=== PATIENT | male | born 1935 | race Caucasian/White ===

== ENCOUNTER 2017-05-22 16:46 | Inpatient (IN) | payer OTHER ==
--- NOTE | 2017-05-22 17:39 | PDOC ---
History of Present Illness <Adenike Arnett - Last Filed: 05/22/17 23:54> - History of Present Illness Initial Comments: 81 year old male with PMH of BPH, HTN, HLD, and Diabetes presenting with abdominal pain, nausea, and vomiting x1 since this AM. All started this AM as a right sided, mid abdominal, relapsing, remitting, 7/10, and non-radiating pain. gave him Mylanta without relief of symptoms. Inconsistent answers to health care providers regarding pain and concurrent symptoms. No objective fevers, but subjective chills and warmth. No cough, chest pain, palpitations, SOB, or other sick symptoms. Dr. Toney is her PCP. Had multiple prostate surgeries. 05/22/17 17:34 05/23/17 00:27 <Cherelle Sanders - Last Filed: 05/23/17 00:39> - General Stated Complaint: BACK PAIN Time Seen by Provider: 05/22/17 17:29 Past History <Adenike Arnett - Last Filed: 05/22/17 23:54> - Past Medical History Diabetes: Yes HTN: Yes Thyroid Disease: Yes - Suicide/Smoking/Psychosocial Hx Smoking Status: No Smoking History: Never smoked Have you smoked in the past 12 months: No Number of Cigarettes Smoked Daily: 0 Hx Alcohol Use: No Drug/Substance Use Hx: No Substance Use Type: None Hx Substance Use Treatment: No <Cherelle Sanders - Last Filed: 05/23/17 00:39> - Past Medical History Allergies/Adverse Reactions: Allergies Allergy/AdvReac Type Severity Reaction Status Date / Time No Known Allergies Allergy Verified 05/22/17 17:47 Home Medications: Ambulatory Orders Ciprofloxacin [Cipro -] 500 mg PO BID 01/27/13 Fesoterodine Fumarate [Toviaz] 8 mg PO DAILY 01/27/13 Insulin (Levemir) [Levemir Flexpen -] 26 units SQ HS 01/27/13 Metformin HCl [Glucophage -] 500 mg PO BID 01/27/13 Metoprolol Tartrate [Lopressor -] 100 mg PO DAILY 01/27/13 Silodosin [Rapaflo] 8 mg PO DAILY 01/27/13 Levothyroxine [Synthroid -] 75 mcg PO DAILY@0700 #0 tablet 02/04/13 Review of Systems - Review of Systems Constitutional: Yes: Diaphoresis. No: Chills, Fever HEENTM: No: Blurred Vision Respiratory: No: Cough, Shortness of Breath Cardiac (ROS): No: Chest Pain, Lightheadedness, Palpitations ABD/GI: Yes: Nausea, Vomiting. No: Constipated, Diarrhea : No: Burning, Dysuria, Discharge Musculoskeletal: No: Back Pain Integumentary: No: Bruising, Change in Color Neurological: No: Headache, Numbness <Cherelle Sanders - Last Filed: 05/23/17 00:39> *Physical Exam - Vital Signs Last Vital Signs Temp Pulse Resp BP Pulse Ox 101.3 F H 88 18 155/79 100 05/22/17 16:46 05/22/17 16:46 05/22/17 16:46 05/22/17 16:46 05/22/17 16:46 <Adenike Arnett - Last Filed: 05/22/17 23:54> - Physical Exam General Appearance: Yes: Nourished, Appropriately Dressed. No: Apparent Distress HEENT: positive: EOMI, DANNY, Normal ENT Inspection, Normal Voice Neck: positive: Trachea midline, Normal Thyroid, Supple. negative: Tender, Rigid Respiratory/Chest: positive: Lungs Clear, Normal Breath Sounds. negative: Chest Tender, Respiratory Distress, Accessory Muscle Use Cardiovascular: positive: Regular Rhythm, Regular Rate, S1, S2. negative: Edema , JVD, Murmur Gastrointestinal/Abdominal: positive: Tender (periumbilical tenderness), Flat, Soft, Increased Bowel Sounds. negative: Normal Bowel Sounds Musculoskeletal: positive: Normal Inspection Extremity: positive: Normal Capillary Refill, Normal Inspection, Normal Range of Motion Integumentary: positive: Normal Color, Dry, Warm Neurologic: positive: coat feller II-XII NML intact, Fully Oriented, Alert, Normal Mood/ Affect <Cherelle Sanders - Last Filed: 05/23/17 00:39> ED Treatment Course - LABORATORY CBC & Chemistry Diagram: 05/22/17 18:30 05/22/17 18:30 - ADDITIONAL ORDERS Additional order review: Laboratory Results 05/22/17 05/22/17 05/22/17 18:37 18:30 18:30 PT with INR INR Sodium 135 L Potassium 4.0 Chloride 100 Carbon Dioxide 28 Anion Gap 7 L BUN 16 Creatinine 0.7 Creat Clearance w eGFR > 60 Random Glucose 183 H D Lactic Acid 1.9 Calcium 9.4 Phosphorus 3.1 Magnesium 1.7 L Total Bilirubin 3.0 H D AST 235 H D ALT 252 H D Alkaline Phosphatase 440 H D Creatine Kinase 74 Troponin I < 0.02 Total Protein 7.5 Albumin 3.5 D Lipase 76 05/22/17 18:30 PT with INR 13.60 H INR 1.23 H Sodium Potassium Chloride Carbon Dioxide Anion Gap BUN Creatinine Creat Clearance w eGFR Random Glucose Lactic Acid Calcium Phosphorus Magnesium Total Bilirubin AST ALT Alkaline Phosphatase Creatine Kinase Troponin I Total Protein Albumin Lipase 05/22/17 18:30 RBC 4.59 MCV 85.1 MCHC 33.6 RDW 14.8 MPV 8.4 D Neutrophils % 89.3 H Lymphocytes % 4.6 L D Monocytes % 6.0 Eosinophils % 0.0 D Basophils % 0.1 D - Medications Given in the ED: ED Medications Discontinued Medications Generic Name Dose Route Start Last Admin Trade Name Freq PRN Reason Stop Dose Admin Sodium Chloride 500 ml 05/22/17 18:10 05/22/17 19:08 Normal Saline - IV 05/22/17 18:11 500 ml ONCE ONE Administration <Adenike Arnett - Last Filed: 05/22/17 23:54> - LABORATORY CBC & Chemistry Diagram: 05/22/17 18:30 05/22/17 18:30 <Cherelle Sanders - Last Filed: 05/23/17 00:39> Medical Decision Making - Medical Decision Making 81 year old male with fever, nausea, vomiting, diaphoresis, and alyce-umbilical tenderness worse with eating. This is most concerning for cholecystitis vs. appendicitis vs. gastroenteritis. Less likely mesenteric ischemia but on differential because of atherosclerotic risk factors. Will get CBC, CMP, lactate and CT abdomen/pelvis with PO contrast. 05/23/17 00:00 Labs exhibiting Transaminitis without specific predominance. No WBC but patient febrile. CT showing possible cholecystitis but no definitive stone., Will get US to elucidate further. 05/23/17 00:35 US positive for Cholecystitis and Dr. Davsi consulted. Will admit to hospitalists with Dr. Davis as consult. NPO at midnight. Patient got one dose of Zosyn. <Cherelle Sanders - Last Filed: 05/23/17 00:39> *DC/Admit/Observation/Transfer - Discharge Dispostion Admit: Yes <Adenike Arnett - Last Filed: 05/22/17 23:54> - Discharge Dispostion Admit: Yes <Cherelle Sanders - Last Filed: 05/23/17 00:39> Diagnosis at time of Disposition: Cholecystitis - Referrals Referrals: Hieu Quintana MD [Primary Care Provider] -
[2017-05-22] MEDS ORDERED: SODIUM CHLORIDE 0.9% 1000 ML INFUS.BAG IV ONE (18:10)
[2017-05-22 18:40] LABS: BASOPHIL 0.1 % (0-2.0); MCH 28.6 pg (25.7-33.7); MCHC 33.6 g/dl (32.0-35.9); MEAN CELL VOLUME 85.1 fl (80-96); MEAN PLT VOLUME 8.4 fl (7.5-11.1); NEUTROPHILS 89.3 % (42.8-82.8); PLATELET COUNT 235 K/MM3 (134-434); RDW 14.8 % (11.9-15.9)
[2017-05-22 18:55] LABS: INR 1.23 (0.82-1.09); PROTHROMBIN TIME (PATIENT) 13.6 SEC (9.98-11.88)
[2017-05-22 19:08] LABS: ALBUMIN 3.5 g/dl (3.4-5.0); ALK PHOS 440 U/L (45-117); ANION GAP 7 (8-16); CALCIUM 9.4 mg/dL (8.5-10.1); CO2 28 mmol/L (21-32); CREATININE 0.7 mg/dL (0.7-1.3); GLUCOSE,RANDOM 183 mg/dL (74-106); PHOSPHOROUS 3.1 mg/dL (2.5-4.9); SGPT/ALT 252 U/L (12-78); TOT PROT 7.5 g/dl (6.4-8.2)
[2017-05-22 19:46] LABS: MAGNESIUM 1.7 mg/dL (1.8-2.4); SGOT/AST 235 U/L (15-37)
[2017-05-22 20:12] LABS: CPK 74 IU/L (39-308); TROPONIN I < 0.02 ng/ml (0.00-0.05)
[2017-05-22] MEDS ORDERED: PIPERACILLIN/TAZOB 3.375 GM/50 ML PRE-DOCKED IV ONE (22:27)
[2017-05-22] MEDS ORDERED: PIPERACILLIN/TAZOB 3.375 GM 50 ML IVPB ONE (23:07)
--- NOTE | 2017-05-22 23:16 | PDOC ---
History of Present Illness - General Chief Complaint: Back Pain Stated Complaint: BACK PAIN Time Seen by Provider: 05/22/17 17:29 Past History - Past Medical History Allergies/Adverse Reactions: Allergies Allergy/AdvReac Type Severity Reaction Status Date / Time No Known Allergies Allergy Verified 05/22/17 17:47 Home Medications: Ambulatory Orders Ciprofloxacin [Cipro -] 500 mg PO BID 01/27/13 Fesoterodine Fumarate [Toviaz] 8 mg PO DAILY 01/27/13 Insulin (Levemir) [Levemir Flexpen -] 26 units SQ HS 01/27/13 Metformin HCl [Glucophage -] 500 mg PO BID 01/27/13 Metoprolol Tartrate [Lopressor -] 100 mg PO DAILY 01/27/13 Silodosin [Rapaflo] 8 mg PO DAILY 01/27/13 Levothyroxine [Synthroid -] 75 mcg PO DAILY@0700 #0 tablet 02/04/13 Diabetes: Yes HTN: Yes Thyroid Disease: Yes - Suicide/Smoking/Psychosocial Hx Smoking Status: No Smoking History: Never smoked Have you smoked in the past 12 months: No Number of Cigarettes Smoked Daily: 0 Information on smoking cessation initiated: No Hx Alcohol Use: No Drug/Substance Use Hx: No Substance Use Type: None Hx Substance Use Treatment: No *Physical Exam - Vital Signs Last Vital Signs Temp Pulse Resp BP Pulse Ox 101.3 F H 88 18 155/79 100 05/22/17 16:46 05/22/17 16:46 05/22/17 16:46 05/22/17 16:46 05/22/17 16:46 ED Treatment Course - LABORATORY CBC & Chemistry Diagram: 05/22/17 18:30 05/22/17 18:30 - ADDITIONAL ORDERS Additional order review: Laboratory Results 05/22/17 05/22/17 05/22/17 18:37 18:30 18:30 PT with INR INR Sodium 135 L Potassium 4.0 Chloride 100 Carbon Dioxide 28 Anion Gap 7 L BUN 16 Creatinine 0.7 Creat Clearance w eGFR > 60 Random Glucose 183 H D Lactic Acid 1.9 Calcium 9.4 Phosphorus 3.1 Magnesium 1.7 L Total Bilirubin 3.0 H D AST 235 H D ALT 252 H D Alkaline Phosphatase 440 H D Creatine Kinase 74 Troponin I < 0.02 Total Protein 7.5 Albumin 3.5 D Lipase 76 05/22/17 18:30 PT with INR 13.60 H INR 1.23 H Sodium Potassium Chloride Carbon Dioxide Anion Gap BUN Creatinine Creat Clearance w eGFR Random Glucose Lactic Acid Calcium Phosphorus Magnesium Total Bilirubin AST ALT Alkaline Phosphatase Creatine Kinase Troponin I Total Protein Albumin Lipase 05/22/17 18:30 RBC 4.59 MCV 85.1 MCHC 33.6 RDW 14.8 MPV 8.4 D Neutrophils % 89.3 H Lymphocytes % 4.6 L D Monocytes % 6.0 Eosinophils % 0.0 D Basophils % 0.1 D - Medications Given in the ED: ED Medications Discontinued Medications Generic Name Dose Route Start Last Admin Trade Name Freq PRN Reason Stop Dose Admin Sodium Chloride 500 ml 05/22/17 18:10 05/22/17 19:08 Normal Saline - IV 05/22/17 18:11 500 ml ONCE ONE Administration
--- NOTE | 2017-05-22 23:20 | PDOC ---
Attending Attestation - HPI HPI: 05/22/17 23:27 The patient is a 81 year old male, febrile and [place] citizen speaking, with a significant past medical history of hypertension, hyperlipidemia, diabetes, UTI , and hernias, who presents to the emergency department sent from urgent care for evaluation of increased right sided abdominal pain with associated nausea and vomiting this morning. The patient reports his pain as intermittent, localized just right to his umbilical region and states he can not describe his pain. He states his pain lasts a few minutes and resolves. He states he has had this pain for a few years. He also states he woke up nauseous this morning and reports one episode of nonbloody emesis today. 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 The patients reports giving her Mylanta with little to no alleviation of his pain. The patients states her was hunched over in pain this morning, however , reports he doesnt tell me anything. LBM: this morning, nonbloody, normal. He denies chest pain, shortness of breath, headache and dizziness. He denies chills, vomit, diarrhea and constipation. He denies dysuria, frequency, urgency and hematuria. Allergies: NKDA Past surgical history: none reported - Physicial Exam PE: 05/22/17 23:28 GENERAL: Well-appearing, well-nourished. No apparent distress. HEENT: Normocephalic, atraumatic. PERRL, EOM intact. CARDIOVASCULAR: Normal S1, S2. Regular rate and rhythm. PULMONARY: Clear to auscultation bilaterally. ABDOMEN: (+) reducible large ventral hernia. Soft, non-distended, non-tender. EXTREMITIES: Normal ROM in all four extremities. No gross deformities. SKIN: Warm, dry. No rash NEUROLOGICAL: No focal neurological deficits. - Medical Decision Making 05/22/17 23:28 Documentation prepared by Patricia Feng, acting as medical concierge for Adenike Arnett MD 05/22/17 23:32 Dr. Davis, general surgery, was paged at this time requesting a call back for doctor to doctor consult. 05/22/17 23:[address] Sanders, ED resident, discussed this patient's case at this time. 05/22/17 23:[address] Roblero, [facility] Hospitalist. The patient will be admitted to Dr. Suarez. <Patricia Feng - Last Filed: 05/22/17 23:56> - Resident Resident Name: Cherelle Sanders - ED Attending Attestation I have performed the following: I have examined & evaluated the patient, The case was reviewed & discussed with the resident, I agree w/resident's findings & plan, Exceptions are as noted - HPI HPI: 05/22/17 23:17 81 yo male BIBA from urgent care for nausea,vomiting x 1 and abdominal pain - Medical Decision Making 05/23/17 00:44 febrile 81 yo male with abd pain had US that showed thickened gallbladder wall, sludge and tbili=3.0 and elevated LFTs .Pt given abtibroeskrgery consult ADMITED to med.surg <Adenike Arnett - Last Filed: 05/23/17 00:46>
--- NOTE | 2017-05-23 | PN ---
Teaching Attending Note Name of Resident: Maxine Freire ATTENDING PHYSICIAN STATEMENT I saw and evaluated the patient. I reviewed the resident's note and discussed the case with the resident. I agree with the resident's findings and plan as documented. SUBJECTIVE: 81 yo M with hx of BPH, HTN, HLD, and DM who presents with abdominl pain. Also had associated nausea and vomiting since this morning. Pain is 7/10 and is located in his right upper quadrant. Pt. states he is no longer having any abdominal pain. Denies any chest pain or pressure. No n/v/d. OBJECTIVE: Physical: VS: Vital Signs Period Temp Pulse Resp BP Sys/Lopes Pulse Ox Last 24 Hr 101.3 F 88 18 155/79 100 GEN: NAD, Resting in bed, able to speak full sentences HEENT: NCAT, PERRL, throat without erythema or exudates CARD: RRR S1, S2 RESP: CTAB ABD: BSX4, NTD to palpation EXT: - C/C/E CBCD WBC 9.0 K/mm3 (4.0-10.0) D 05/22/17 18:30 RBC 4.59 M/mm3 (4.00-5.60) 05/22/17 18:30 Hgb 13.1 GM/dL (11.7-16.9) 05/22/17 18:30 Hct 39.1 % (35.4-49) 05/22/17 18:30 MCV 85.1 fl (80-96) 05/22/17 18:30 MCHC 33.6 g/dl (32.0-35.9) 05/22/17 18:30 RDW 14.8 % (11.9-15.9) 05/22/17 18:30 Plt Count 235 K/MM3 (134-434) D 05/22/17 18:30 MPV 8.4 fl (7.5-11.1) D 05/22/17 18:30 CMP Sodium 135 mmol/L (136-145) L 05/22/17 18:30 Potassium 4.0 mmol/L (3.5-5.1) 05/22/17 18:30 Chloride 100 mmol/L (98-107) 05/22/17 18:30 Carbon Dioxide 28 mmol/L (21-32) 05/22/17 18:30 Anion Gap 7 (8-16) L 05/22/17 18:30 BUN 16 mg/dL (7-18) 05/22/17 18:30 Creatinine 0.7 mg/dL (0.7-1.3) 05/22/17 18:30 Creat Clearance w eGFR > 60 (>60) 05/22/17 18:30 Random Glucose 183 mg/dL (74-106) H D 05/22/17 18:30 Calcium 9.4 mg/dL (8.5-10.1) 05/22/17 18:30 Total Bilirubin 3.0 mg/dL (0.2-1.0) H D 05/22/17 18:30 AST 235 U/L (15-37) H D 05/22/17 18:30 ALT 252 U/L (12-78) H D 05/22/17 18:30 Alkaline Phosphatase 440 U/L (45-117) H D 05/22/17 18:30 Total Protein 7.5 g/dl (6.4-8.2) 05/22/17 18:30 Albumin 3.5 g/dl (3.4-5.0) D 05/22/17 18:30 CARDIAC ENZYMES Creatine Kinase 74 IU/L (39-308) 05/22/17 18:37 Troponin I < 0.02 ng/ml (0.00-0.05) 05/22/17 18:37 EKG: PENDING CXR:No acute Process ABD/PELVIS CT: Mild Thickening if gallbladder wall and small amt of air in gallbladder fundus, mild haziness suspicous of acute choleycystitis. 1.9 cm Lesion in R. mid kidney. Abd US: Gallstone sludge with wall thickening. 2.5cm R. Hepatic lobe cyst. 1cm R , Renal simple cyst Home Medications Medication Instructions Recorded Ciprofloxacin [Cipro -] 500 mg PO BID 01/27/13 Fesoterodine Fumarate [Toviaz] 8 mg PO DAILY 01/27/13 Insulin (Levemir) [Levemir Flexpen 26 units SQ HS 01/27/13 -] Metformin HCl [Glucophage -] 500 mg PO BID 01/27/13 Metoprolol Tartrate [Lopressor -] 100 mg PO DAILY 01/27/13 Silodosin [Rapaflo] 8 mg PO DAILY 01/27/13 Levothyroxine [Synthroid -] 75 mcg PO DAILY@0700 #0 tablet 02/04/13 ASSESSMENT AND PLAN: 81 yo M with pmhx. of HTN, HLD, and DM who presents with abdominal pain, nausea and vomiting found to have acute choleycystitis 1.) Acute Choleycystitis - NPO - IVF - COAGS - Type and Screen - Zosyn - ID Consult - Sx. Consult 2.) Transaminitis- DDx: Choledocholithiasis - In light of INC. Lfts w. Inc Bili - MRCP - GI consult - Chk. D Adrian/Ggt 3.) DM - FS - RAISS - Hold Metformin - Hold Lantus- NO po intake today 4.) Hypothyriodism - C/W Levothyroxine 5.) BPH - C/W home meds 6.) Dvt Ppx - Low Risk - SCD Place in Med-Sx
--- NOTE | 2017-05-23 00:44 | HP ---
CHIEF COMPLAINT: abdominal pain PCP: Dr. Hieu Quintana HISTORY OF PRESENT ILLNESS: 71yo M with PMH of UTI, BPH, dm, htn, hld, presents c/o abdominal pain. Interpretation phones used, but pt declined to participate in interview. History obtained from medical chart and ER resident. Right sided abdominal pain began this morning. Pain is described as intermittent, non-radiating, rated 7/10. Pain is worse with eating. Pt took Mylanta which did not relieve the pain. Also, one episode of nbnb vomiting this morning. Last bowel movement was this morning, non-bloody/normal. ER course was notable for: (1) CT abdomen -> mild thickening of gallbladder wall and small amount of air in gallbladder fundus, mild haziness of surrounding fat suspicious for cholecystitis (2) US gallbladder -> gallstones with sludge and wall thickening, (-) sonographic oquendo's sign (3) Zosyn, NS 500ml bolus PAST MEDICAL HISTORY: uti bph dm htn hld thyroid PAST SURGICAL HISTORY: none Social History: Smoking: never Alcohol: none Drugs: none Allergies No Known Allergies Allergy (Verified 05/22/17 17:47) HOME MEDICATIONS: Home Medications Medication Instructions Recorded Ciprofloxacin [Cipro -] 500 mg PO BID 01/27/13 Fesoterodine Fumarate [Toviaz] 8 mg PO DAILY 01/27/13 Insulin (Levemir) [Levemir Flexpen 26 units SQ HS 01/27/13 -] Metformin HCl [Glucophage -] 500 mg PO BID 01/27/13 Metoprolol Tartrate [Lopressor -] 100 mg PO DAILY 01/27/13 Silodosin [Rapaflo] 8 mg PO DAILY 01/27/13 Levothyroxine [Synthroid -] 75 mcg PO DAILY@0700 #0 tablet 02/04/13 REVIEW OF SYSTEMS Unable to perform. Pt refused to participate. PHYSICAL EXAMINATION Last Vital Signs Temp Pulse Resp BP Pulse Ox 101.3 F H 88 18 155/79 100 05/22/17 16:46 05/22/17 16:46 05/22/17 16:46 05/22/17 16:46 05/22/17 16:46 GENERAL: Awake, alert, in no acute distress. HEAD: Normal with no signs of trauma. EYES: Extraocular movements intact, sclera anicteric, conjunctiva clear. No lid lag. EARS, NOSE, THROAT: Moist mucous membranes. NECK: Normal range of motion, supple without lymphadenopathy, JVD, or masses. LUNGS: Breath sounds equal, clear to auscultation bilaterally. No wheezes, and no crackles. No accessory muscle use. HEART: Regular rate and rhythm, normal S1 and S2. 3/6 holosystolic murmur appreciated, best heard at right upper sternal border. ABDOMEN: Soft, nontender, not distended, normoactive bowel sounds, no guarding, no rebound, no masses. (-) oquendo's sign. MUSCULOSKELETAL: Normal range of motion at all joints. LOWER EXTREMITIES: Warm, well-perfused. No peripheral edema. NEUROLOGICAL: Normal speech. Normal gait. PSYCHIATRIC: Good eye contact. SKIN: Warm, dry, normal turgor, no rashes or lesions noted. Laboratory Last Values WBC 9.0 K/mm3 (4.0-10.0) D 05/22/17 18:30 RBC 4.59 M/mm3 (4.00-5.60) 05/22/17 18:30 Hgb 13.1 GM/dL (11.7-16.9) 05/22/17 18:30 Hct 39.1 % (35.4-49) 05/22/17 18:30 MCV 85.1 fl (80-96) 05/22/17 18:30 MCH 28.6 pg (25.7-33.7) 05/22/17 18:30 MCHC 33.6 g/dl (32.0-35.9) 05/22/17 18:30 RDW 14.8 % (11.9-15.9) 05/22/17 18:30 Plt Count 235 K/MM3 (134-434) D 05/22/17 18:30 MPV 8.4 fl (7.5-11.1) D 05/22/17 18:30 Neutrophils % 89.3 % (42.8-82.8) H 05/22/17 18:30 Lymphocytes % 4.6 % (8-40) L D 05/22/17 18:30 Monocytes % 6.0 % (3.8-10.2) 05/22/17 18:30 Eosinophils % 0.0 % (0-4.5) D 05/22/17 18:30 Basophils % 0.1 % (0-2.0) D 05/22/17 18:30 PT with INR 13.60 SEC (9.98-11.88) H 05/22/17 18:30 INR 1.23 (0.82-1.09) H 05/22/17 18:30 Sodium 135 mmol/L (136-145) L 05/22/17 18:30 Potassium 4.0 mmol/L (3.5-5.1) 05/22/17 18:30 Chloride 100 mmol/L (98-107) 05/22/17 18:30 Carbon Dioxide 28 mmol/L (21-32) 05/22/17 18:30 Anion Gap 7 (8-16) L 05/22/17 18:30 BUN 16 mg/dL (7-18) 05/22/17 18:30 Creatinine 0.7 mg/dL (0.7-1.3) 05/22/17 18:30 Creat Clearance w eGFR > 60 (>60) 05/22/17 18:30 Random Glucose 183 mg/dL (74-106) H D 05/22/17 18:30 Lactic Acid 1.9 mmol/L (0.4-2.0) 05/22/17 18:30 Calcium 9.4 mg/dL (8.5-10.1) 05/22/17 18:30 Phosphorus 3.1 mg/dL (2.5-4.9) 05/22/17 18:30 Magnesium 1.7 mg/dL (1.8-2.4) L 05/22/17 18:30 Total Bilirubin 3.0 mg/dL (0.2-1.0) H D 05/22/17 18:30 AST 235 U/L (15-37) H D 05/22/17 18:30 ALT 252 U/L (12-78) H D 05/22/17 18:30 Alkaline Phosphatase 440 U/L (45-117) H D 05/22/17 18:30 Creatine Kinase 74 IU/L (39-308) 05/22/17 18:37 Troponin I < 0.02 ng/ml (0.00-0.05) 05/22/17 18:37 Total Protein 7.5 g/dl (6.4-8.2) 05/22/17 18:30 Albumin 3.5 g/dl (3.4-5.0) D 05/22/17 18:30 Lipase 76 U/L (73-393) 05/22/17 18:30 IMAGIN05/22/17 CXR -> no acute lung pathology 05/22/17 CT abdomen -> see above 05/22/17 US gallbladder -> see above ASSESSMENT/PLAN: 71yo M with PMH of UTI, BPH, dm, htn, hld, presents c/o Right-sided abdominal pain since this morning admit to Med-Surg inpatient for acute cholecystitis. 1) acute cholecystitis - npo - NS @ 83 ml/hr - type and screen ordered - Zosyn given - ID Consult - Surgery Consult 2) transaminitis - may be 2/2 choledocholithiasis - MRCP - GI Consult 3) febrile - neutrophilia noted - lactic acid wnl - UA, Urine culture - blood cultures pending 4) hypomagnesemia - replete 5) dm - blood glucose monitoring q6hr - sliding scale insulin - hold Metformin - hold long-acting insulin while pt is npo 6) hypothyroidism - continue home med of Synthroid 75mcg 7) htn - continue home med of Lopressor 100mg 8) bph - continue home med of Rapaflo 8mg 9) FEN - fluids: NS @ 83 ml/hr - electrolytes: slight hyponatremia noted, continue to monitor - nutrition: npo 10) DVT prophylaxis - toni SCDs - Heparin 5000U q8hr Visit type - Emergency Visit Emergency Visit: Yes ED Registration Date: 05/22/17 Care time: The patient presented to the Emergency Department on the above date and was hospitalized for further evaluation of their emergent condition. - New Patient This patient is new to me today: Yes Date on this admission: 05/23/17 - Critical Care Critical Care patient: No
[2017-05-23] MEDS: SODIUM CHLORIDE 1,000 ML IV SCH (01:19)
[2017-05-23] MEDS: INSULIN SLIDING SCALE (NOVOLOG) 1 VIAL SQ SCH ×4 (01:19→17:13)
[2017-05-23] MEDS ORDERED: MAGNESIUM SULF 50% (8.12 MEQ/2 ML-1 GM VIAL) IVPB ONE (01:52)
--- NOTE | 2017-05-23 02:02 | HP ---
Admitting History and Physical - Admission History of Present Illness: 71yo M with PMH of UTI, BPH, dm, htn, hld, presents c/o abdominal pain. Right sided abdominal pain started this AM currently Pain free. CTAP and RUQ US suggestive of acute cholecystitis vs choledocholithiasis and elevated LFTs with fever. History Source: Patient, Medical Record Limitations to Obtaining History: Language Barrier - Smoking History Smoking history: Never smoked Have you smoked in the past 12 months: No Aproximately how many cigarettes per day: 0 - Alcohol/Substance Use Hx Alcohol Use: No Home Medications - Allergies Allergies/Adverse Reactions: Allergies Allergy/AdvReac Type Severity Reaction Status Date / Time No Known Allergies Allergy Verified 05/22/17 17:47 - Home Medications Home Medications: Ambulatory Orders Ciprofloxacin [Cipro -] 500 mg PO BID 01/27/13 Fesoterodine Fumarate [Toviaz] 8 mg PO DAILY 01/27/13 Insulin (Levemir) [Levemir Flexpen -] 26 units SQ HS 01/27/13 Metformin HCl [Glucophage -] 500 mg PO BID 01/27/13 Metoprolol Tartrate [Lopressor -] 100 mg PO DAILY 01/27/13 Silodosin [Rapaflo] 8 mg PO DAILY 01/27/13 Levothyroxine [Synthroid -] 75 mcg PO DAILY@0700 #0 tablet 02/04/13 Physical Examination Vital Signs: Vital Signs Temperature 101.3 F H 05/22/17 16:46 Pulse Rate 88 05/22/17 16:46 Respiratory Rate 18 05/22/17 16:46 Blood Pressure 155/79 05/22/17 16:46 O2 Sat by Pulse Oximetry (%) 100 05/22/17 16:46 Constitutional: Yes: No Distress, Calm Eyes: Yes: Conjunctiva Clear HENT: Yes: Atraumatic Neck: Yes: Supple, Trachea Midline Cardiovascular: Yes: Regular Rate and Rhythm, Murmur (3/6 systolic Best heard at RUSB) Respiratory: Yes: CTA Bilaterally Gastrointestinal: Yes: Soft. No: Tenderness Edema: No Imaging - Results Chest X-ray: Report Reviewed, Image Reviewed Cat Scan: Report Reviewed, Image Reviewed Ultrasound: Report Reviewed Assessment/Plan 81M with multiple medical problems presents to the ED with 1 day history of abdominal pain. Problem list: acute cholecystitis vs possible choledocholithiasis transamintitis HTN HLD BPH/overactive bladder DM hypothyroidism Plan: Admit to inpatient surgery consult GI consult MRCP ID consult ABx NPO IVF DVT PPx BGM ISS Hold long acting insulin restart synthroid restart antihypertensives Case discussed with admitting resident and Attending Full H&P to follow Visit type - Emergency Visit Emergency Visit: Yes ED Registration Date: 05/23/17 Care time: The patient presented to the Emergency Department on the above date and was hospitalized for further evaluation of their emergent condition. - New Patient This patient is new to me today: Yes Date on this admission: 05/23/17 - Critical Care Critical Care patient: No
[2017-05-23 05:38] VITALS: BMI 28.4
[2017-05-23] MEDS: HEPARIN NA (PORCINE) 5,000 UNITS/ML 1ML VIAL SQ SCH ×3 (06:12→22:42)
[2017-05-23] MEDS: LEVOTHYROXINE NA 75 MCG TABLET (FP) PO SCH (07:10)
[2017-05-23 07:27] LABS: BASOPHIL 0.3 % (0-2.0); EOSINOPHIL 0.4 % (0-4.5); MCH 28.4 pg (25.7-33.7); MCHC 33.3 g/dl (32.0-35.9); MEAN CELL VOLUME 85.1 fl (80-96); MEAN PLT VOLUME 8.4 fl (7.5-11.1); NEUTROPHILS 76.9 % (42.8-82.8); PLATELET COUNT 224 K/MM3 (134-434); RDW 14.9 % (11.9-15.9); WHITE BLOOD COUNT 5.9 K/mm3 (4.0-10.0)
[2017-05-23] MEDS ORDERED: METRONIDAZOLE 500 MG PREMIXED 100 ML IVPB SCH (07:30)
[2017-05-23] MEDS ORDERED: DEXTROSE 5%-WATER - 50 ML IVPB ONE (07:41)
[2017-05-23] MEDS ORDERED: cefTRIAXone SODIUM 1 GM VIAL ONE (07:41)
[2017-05-23] MEDS: TAMSULOSIN HCL 0.4 MG CAP.ER.24H (FP) PO SCH (07:54)
--- NOTE | 2017-05-23 08:50 | CONSULT ---
<Larry Beltrán P - Last Filed: 05/23/17 09:14> - Consultation REQUESTING PROVIDER: Raji Davis - General Surgery CONSULT REQUEST: We have been asked to surgically evaluate this patient for RUQ abd pain. PCP: Abhi Soto HPI: Called to eval 81 yo male with PMHx noted below. C/o RUQ abd pain...worse after eating food. Admits he's experienced this in the pasy but never sought medical attention. Brought to [facility] for further eval. Had associated n/v. Had temp of 101.4F in ED. Initially, pain was 7/10 on admission and located in RUQ without radiation. Currently resting comfortably as pain has resolved. Given dose of Zosyn in ED. While in ED he had the following studies performed: CT abd -> mild thickening of GB wall & small amount of air in gb fundus, mild haziness of surrounding fat suspicious for cholecystitis U/S -> gallstones with sludge and wall thickening Denies n/v/f/c, diaphoresis, generalized weakness. Denies CP, SOB or ZAVALA. Denies abd pain, distension, melena, hematochezia. Denies dysuria, frequency, urgency, hesitancy, hematuria, flank pain. Denies rash or itching. Denies a EtOH history PMHx: UTI, BPH, DM, HTN, HLD, Hypothyroid PSHx: Denies Home Meds Ciprofloxacin [Cipro -] 500 mg PO BID Fesoterodine Fumarate [Toviaz] 8 mg PO DAILY Insulin (Levemir) [Levemir Flexpen -] 26 units SQ HS Metformin HCl [Glucophage -] 500 mg PO BID Metoprolol Tartrate [Lopressor -] 100 mg PO DAILY Silodosin [Rapaflo] 8 mg PO DAILY Levothyroxine [Synthroid -] 75 mcg PO DAILY@0700 #0 tablet Allergies: NKDA ROS: CONSTITUTIONAL: Absent: SEE HPI. malaise, loss of appetite, weight change CARDIOVASCULAR: Absent: SEE HPI. syncope, palpitations, irregular heart rate, lightheadedness RESPIRATORY: Absent: SEE HPI. cough, wheezing, stridor, hemoptysis GASTROINTESTINAL:Absent: SEE HPI GENITOURINARY: Absent: SEE HPI. genital pain MUSCULOSKELETAL: Absent: myalgia, arthralgia, joint swelling, back pain, neck pain SKIN: Absent: SEE HPI. rash, pallor HEMATOLOGIC/IMMUNOLOGIC: Absent: easy bleeding, easy bruising, lymphadenopathy NEUROLOGIC: Absent: headache, focal weakness, paresthesias, dizziness, unsteady gait, seizure, mental status changes PSYCHIATRIC: Absent: anxiety, depression, suicidal or homicidal ideation, hallucinations. PE: GENERAL: Awake, alert, and fully oriented, in no acute distress. HEAD: NC. AT. EYES: PERRL, sclera icteric ABD: Soft, NT. ND. Neg Cruz's MUSCULOSKELETAL: No CVAT Last Vital Signs Temp Pulse Resp BP Pulse Ox 99.1 F 72 20 124/59 97 05/23/17 07:42 05/23/17 07:42 05/23/17 07:42 05/23/17 07:42 05/23/17 05:08 CBC, BMP 05/23/17 06:00 Hepatic Panel Total Bilirubin 3.0 mg/dL (0.2-1.0) H D 05/22/17 18:30 AST 235 U/L (15-37) H D 05/22/17 18:30 ALT 252 U/L (12-78) H D 05/22/17 18:30 Alkaline Phosphatase 440 U/L (45-117) H D 05/22/17 18:30 Albumin 3.5 g/dl (3.4-5.0) D 05/22/17 18:30 INR, PTT INR 1.23 (0.82-1.09) H 05/22/17 18:30 Troponin 05/22/17 18:37 Troponin I < 0.02 Problem List - Problems (1) Cholecystitis Assessment/Plan: Pain management PRN Monitor LFTs Serial abd exams f/u MRCP GI Consult for elevated LFTs and possible ERCP pending results of MRCP f/u ECHO secondary to cardiac murmur Cardio Consult Medical optimization / clearance for impending lap karina IV ABX GI / DVT PPX Tylenol 650mg for fever > 100.3F Above plan discussed with Dr. Davis and agrees Code(s): K81.9 - CHOLECYSTITIS, UNSPECIFIED Visit type - Case Type Case Type: ED Admission - Emergency Emergency Visit: Yes ED Registration Date: 05/22/17 Care time: The patient presented to the Emergency Department on the above date and was hospitalized for further evaluation of their emergent condition. - New patient This patient is new to me today: Yes Date on this admission: 05/23/17 <Raji Davis N - Last Filed: 05/23/17 09:39> - Consultation REQUESTING PROVIDER: CONSULT REQUEST: We have been asked to surgically evaluate this patient for ( specify). PCP:Abhi Soto HISTORY OF PRESENT ILLNESS: PMHx: PSHx: Home Medications Medication Instructions Recorded Ciprofloxacin [Cipro -] 500 mg PO BID 01/27/13 Fesoterodine Fumarate [Toviaz] 8 mg PO DAILY 01/27/13 Insulin (Levemir) [Levemir Flexpen 26 units SQ HS 01/27/13 -] Metformin HCl [Glucophage -] 500 mg PO BID 01/27/13 Metoprolol Tartrate [Lopressor -] 100 mg PO DAILY 01/27/13 Silodosin [Rapaflo] 8 mg PO DAILY 01/27/13 Levothyroxine [Synthroid -] 75 mcg PO DAILY@0700 #0 tablet 02/04/13 Allergies Allergy/AdvReac Type Severity Reaction Status Date / Time No Known Allergies Allergy Verified 05/22/17 17:47 REVIEW OF SYSTEMS: CONSTITUTIONAL: Absent: fever, chills, diaphoresis, generalized weakness, malaise, loss of appetite, weight change CARDIOVASCULAR: Absent: chest pain, syncope, palpitations, irregular heart rate, lightheadedness , peripheral edema RESPIRATORY: Absent: cough, shortness of breath, dyspnea with exertion, wheezing, stridor, hemoptysis GASTROINTESTINAL: Absent: abdominal pain, abdominal distension, nausea, vomiting, diarrhea, constipation, melena, hematochezia GENITOURINARY: Absent: dysuria, frequency, urgency, hesitancy, hematuria, flank pain, genital pain MUSCULOSKELETAL: Absent: myalgia, arthralgia, joint swelling, back pain, neck pain SKIN: Absent: rash, itching, pallor HEMATOLOGIC/IMMUNOLOGIC: Absent: easy bleeding, easy bruising, lymphadenopathy NEUROLOGIC: Absent: headache, focal weakness, paresthesias, dizziness, unsteady gait, seizure, mental status changes, bladder or bowel incontinence PSYCHIATRIC: Absent: anxiety, depression, suicidal or homicidal ideation, hallucinations. PHYSICAL EXAM: GENERAL: Awake, alert, and fully oriented, in no acute distress. HEAD: Normal with no signs of trauma. EYES: PERRL, sclera anicteric, conjunctiva clear. NECK: Normal ROM, supple without lymphadenopathy, JVD, or masses. LUNGS: Clear to auscultation bilat anteriorly. No wheezes, and no crackles. No accessory muscle use. HEART: Regular rate and rhythm. No murmurs ABDOMEN: Soft, nontender, not distended, normoactive bowel sounds, no guarding, no rebound, no masses. No organomegaly. MUSCULOSKELETAL: Normal ROM at all joints. No bony deformities or tenderness. No CVA tenderness. UPPER EXTREMITIES: 2+ pulses, warm, well-perfused. No cyanosis. Cap refill <2 seconds. No peripheral edema. LOWER EXTREMITIES: 2+ pulses, warm, well-perfused. No calf tenderness. No peripheral edema. NEUROLOGICAL: Normal speech, gait not observed. PSYCH: Cooperative. Good eye contact. Appropriate mood and affect. SKIN: Warm, dry, normal turgor, no rashes or lesions noted. Vital Signs Temperature 99.1 F 05/23/17 07:42 Pulse Rate 72 05/23/17 07:42 Respiratory Rate 20 05/23/17 07:42 Blood Pressure 124/59 05/23/17 07:42 O2 Sat by Pulse Oximetry (%) 97 05/23/17 05:08 Lab Results WBC 5.9 K/mm3 (4.0-10.0) D 05/23/17 06:00 RBC 4.30 M/mm3 (4.00-5.60) 05/23/17 06:00 Hgb 12.2 GM/dL (11.7-16.9) 05/23/17 06:00 Hct 36.6 % (35.4-49) 05/23/17 06:00 MCV 85.1 fl (80-96) 05/23/17 06:00 MCHC 33.3 g/dl (32.0-35.9) 05/23/17 06:00 RDW 14.9 % (11.9-15.9) 05/23/17 06:00 Plt Count 224 K/MM3 (134-434) 05/23/17 06:00 Sodium 138 mmol/L (136-145) 05/23/17 06:00 Potassium 3.6 mmol/L (3.5-5.1) 05/23/17 06:00 Chloride 100 mmol/L (98-107) 05/23/17 06:00 Carbon Dioxide 30 mmol/L (21-32) 05/23/17 06:00 Anion Gap 8 (8-16) 05/23/17 06:00 BUN 14 mg/dL (7-18) 05/23/17 06:00 Creatinine 0.6 mg/dL (0.7-1.3) L 05/23/17 06:00 Random Glucose 139 mg/dL (74-106) H D 05/23/17 06:00 Calcium 8.2 mg/dL (8.5-10.1) L 05/23/17 06:00 INR 1.23 (0.82-1.09) H 05/22/17 18:30 Attending Surgeon Patient seen and evaluated; concur w/ a/p as outlined by APRIL Beltrán; case d/w Dr. Soto as well. Raji Davis MD FACS
[2017-05-23 09:03] LABS: ANION GAP 8 (8-16); CALCIUM 8.2 mg/dL (8.5-10.1); CO2 30 mmol/L (21-32); GLUCOSE,RANDOM 139 mg/dL (74-106); MAGNESIUM 2.4 mg/dL (1.8-2.4)
[2017-05-23 09:06] LABS: ALK PHOS 372 U/L (45-117); BILIRUBIN,TOTAL 2.7 mg/dL (0.2-1.0); CREATININE 0.6 mg/dL (0.7-1.3); PHOSPHOROUS 2.6 mg/dL (2.5-4.9); SGOT/AST 162 U/L (15-37); SGPT/ALT 203 U/L (12-78); TOT PROT 6.4 g/dl (6.4-8.2)
[2017-05-23] MEDS: CEFTRIAXONE 1 GM in DEXTROSE 5%-WATER - 50 ML IVPB SCH (09:20)
[2017-05-23] MEDS: METOPROLOL TARTRATE 50 MG TABLET (FP) PO SCH (09:26)
[2017-05-23] MEDS: METRONIDAZOLE 500 MG PREMIXED 100 ML IVPB SCH ×2 (09:28→17:09)
[2017-05-23 09:29] LABS: URINE APPEARANCE CLEAR; URINE BILIRUBIN NEGATIVE (NEGATIVE); URINE BLOOD NEGATIVE (NEGATIVE); URINE COLOR AMBER; URINE GLUCOSE (UA) NEGATIVE (NEGATIVE); URINE KETONE NEGATIVE (NEGATIVE); URINE LEUK ESTERASE NEGATIVE (NEGATIVE); URINE NITRITE NEGATIVE (NEGATIVE); URINE UROBILINOGEN 4.0 E.U/dl mg/dL (0.2-1.0)
--- NOTE | 2017-05-23 09:29 | PN ---
Teaching Attending Note Name of Resident: Sandrine Castillo ATTENDING PHYSICIAN STATEMENT I saw and evaluated the patient. I reviewed the resident's note and discussed the case with the resident. I agree with the resident's findings and plan as documented. 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 no abd pain at this time, he denies N/V/fever or chills. He reports intermittent abd pain at home , but not related to food. On monday constant pain started , but it remained constant till this am. He does not have GI doctor OBJECTIVE: NAD , Awake and alert , cooperative ecteric sclera, MMM. no JVD , no LAP in neck . EOMI CV: RRR, 3/6 SM at RUSB with radiation to carotids, 3/6 SM at apex with radiation to axilla. systolic mummers also heard at LUSB and LLSB Abd: soft, NT, ND , NL BS , Neg Cruz's sign Ext: no edema or erythema, no tremor or asterexis ASSESSMENT AND PLAN: 81 y/o man with h/o HTN, DM , HLP, and other medical problems who presented with RUQ pain and was found to have LFTS abnormalities, and gall stones 1- RUQ pain: although there are gall stones and gall blader wall thickening, the patient has no RUQ tenderness and Neg Cruz's sign. His sx also resolved. I wonder if he has passed a stone. LFTS are still pending. If they are going down , then that suggest passing a stone. If not then there is a persistent obstruction . At this point the diagnosis of acute cholecystitis is still questionable, but he has fever and jaundice... need to r/o cholangitis - start ceftriaxone and flagyl ( was given zosyn) - blood cx sent - Keep NPO - Surgery eval in progress - Obtain MRCP of abd to r/o obstructing stone in CBD , if this is the case , will need ERCP - GI consult pending - follow LFTS - I hear a loud SM in RUSB with radiation to carotids ( need to R/o significant ) - Pre-Op risk stratification : the surgery is moderate risk procedure. clinically the patient has no exertional CP or SOB, no h/o heart failure m, stroke or arrhythmias. he ahs no signs of heart failure or ACS or arrhythmias. He has a SM murmur though. will determine his risk of alyce-Op cardiac events after obtaining the Echo 2- H/o HTN: cont BB 3- H/o Dm: will confirm meds. cont SSI . will probably resume a lower dose of levemir depending of his BS HLOC
[2017-05-23 09:33] LABS: URINE PROTEIN 1+ (NEGATIVE)
[2017-05-23 09:35] LABS: URINE MUCUS RARE; URINE RBC 2 /hpf (0-3); URINE WBC 2 /hpf (3-5)
[2017-05-23] MEDS ORDERED: PNEUMOC 13-VAL CONJ-DIP CRM/PF 0.5 ML DISP.SYRIN IM ONE (10:00)
[2017-05-23] MEDS ORDERED: FLU VACCINE QUAD 60 MCG/0.5 ML (MDV 17-18) IM ONE (10:00)
--- NOTE | 2017-05-23 11:23 | CONSULT ---
Consult Consult Specialty:: Gastroenterology Referred by:: Dr. Stein Reason for Consultation:: Abdminal pain - History of Present Illness History of Present Illness: Chart reviewed. History obtained from chart and the patient. This is a 81 yo male who was admitted with RUQ abdominal pain. Onset Monday morning. Aggravated by food. Associated with nausea and an episode of vomiting. No changes in bowels , fever, chills, jaundice. No ill contacts. Household members asymptomatic. No history of heavy ETOH chronic NDSAIDs. No history of PUD. RUQ sonogram positive for gall stones and biliary sludge with thickened GB and normal CBD. A CT AP also positive for thickened GB and pericholisystic fluid. Blood work revealed normal WBC, moderate transaminitis with cholestasis. Thie is no hisotry of dysphagia, odynophagia, GERD. - Alcohol/Substance Use Hx Alcohol Use: No - Smoking History Smoking history: Never smoked Have you smoked in the past 12 months: No Aproximately how many cigarettes per day: 0 Home Medications - Allergies Allergies/Adverse Reactions: Allergies Allergy/AdvReac Type Severity Reaction Status Date / Time No Known Allergies Allergy Verified 05/22/17 17:47 - Home Medications Home Medications: Ambulatory Orders Ciprofloxacin [Cipro -] 500 mg PO BID 01/27/13 Fesoterodine Fumarate [Toviaz] 8 mg PO DAILY 01/27/13 Insulin (Levemir) [Levemir Flexpen -] 26 units SQ HS 01/27/13 Metformin HCl [Glucophage -] 500 mg PO BID 01/27/13 Metoprolol Tartrate [Lopressor -] 100 mg PO DAILY 01/27/13 Silodosin [Rapaflo] 8 mg PO DAILY 01/27/13 Levothyroxine [Synthroid -] 75 mcg PO DAILY@0700 #0 tablet 02/04/13 Family Disease History - Family Disease History Family History: Unremarkable (non-contributing) Review of Systems - Review of Systems Constitutional: denies: Chills, Fever, Lethargy, Unintentional Wgt. Loss HENT: denies: Difficult Swallowing Cardiovascular: denies: Chest Pain Respiratory: denies: Cough Gastrointestinal: reports: Abdominal Pain (see HPI), Nausea, Vomiting. denies: Constipation, Diarrhea, Dysphagia, Melena, Rectal Bleeding, Vomiting Blood Genitourinary: reports: No Symptoms Musculoskeletal: reports: No Symptoms Integumentary: reports: Other (no jaundice) Hematology/Lymphatic: denies: Excessive Bleeding Physical Exam Vital Signs: Vital Signs Temperature 99.1 F 05/23/17 07:42 Pulse Rate 72 05/23/17 07:42 Respiratory Rate 20 05/23/17 07:42 Blood Pressure 124/59 05/23/17 07:42 O2 Sat by Pulse Oximetry (%) 97 05/23/17 05:08 Constitutional: Yes: Well Nourished, No Distress, Calm Eyes: Yes: Conjunctiva Clear HENT: Yes: Atraumatic, Normocephalic Neck: Yes: Supple. No: Lymphadenopathy Cardiovascular: Yes: Regular Rate and Rhythm. No: JVD Respiratory: Yes: CTA Bilaterally Gastrointestinal: Yes: Normal Bowel Sounds, Soft. No: Ascites, Distention, Hepatomegaly, Palpable Mass, Pulsatile Mass, Splenomegaly, Tenderness, Tenderness, Epigastrium, Tenderness, Rebound, Vomiting Musculoskeletal: No: Back Pain, Joint Swelling Extremities: Yes: WNL Integumentary: No: Jaundice Neurological: Yes: Alert, Oriented Psychiatric: No: Agitated Labs: CBC, BMP Laboratory Tests 05/22/17 05/22/17 05/22/17 18:30 18:30 18:30 WBC 9.0 D RBC 4.59 Hgb 13.1 Hct 39.1 MCV 85.1 MCH 28.6 MCHC 33.6 RDW 14.8 Plt Count 235 D MPV 8.4 D Neutrophils % 89.3 H Lymphocytes % 4.6 L D Monocytes % 6.0 Eosinophils % 0.0 D Basophils % 0.1 D PT with INR 13.60 H INR 1.23 H Sodium 135 L Potassium 4.0 Chloride 100 Carbon Dioxide 28 Anion Gap 7 L BUN 16 Creatinine 0.7 Creat Clearance w eGFR > 60 POC Glucometer Random Glucose 183 H D Lactic Acid Calcium 9.4 Phosphorus 3.1 Magnesium 1.7 L Total Bilirubin 3.0 H D Direct Bilirubin AST 235 H D ALT 252 H D Alkaline Phosphatase 440 H D Creatine Kinase Troponin I Total Protein 7.5 Albumin 3.5 D Lipase 76 Urine Color Urine Appearance Urine pH Ur Specific [place] Urine Protein Urine Glucose (UA) Urine Ketones Urine Blood Urine Nitrite Urine Bilirubin Urine Urobilinogen Urine RBC Urine WBC Ur Epithelial Cells Urine Mucus 05/22/17 05/22/17 05/23/17 18:30 18:37 05:55 WBC RBC Hgb Hct MCV MCH MCHC RDW Plt Count MPV Neutrophils % Lymphocytes % Monocytes % Eosinophils % Basophils % PT with INR INR Sodium Potassium Chloride Carbon Dioxide Anion Gap BUN Creatinine Creat Clearance w eGFR POC Glucometer 139 Random Glucose Lactic Acid 1.9 Calcium Phosphorus Magnesium Total Bilirubin Direct Bilirubin AST ALT Alkaline Phosphatase Creatine Kinase 74 Troponin I < 0.02 Total Protein Albumin Lipase Urine Color Urine Appearance Urine pH Ur Specific [place] Urine Protein Urine Glucose (UA) Urine Ketones Urine Blood Urine Nitrite Urine Bilirubin Urine Urobilinogen Urine RBC Urine WBC Ur Epithelial Cells Urine Mucus 05/23/17 05/23/17 05/23/17 06:00 06:00 06:00 WBC 5.9 D RBC 4.30 Hgb 12.2 Hct 36.6 MCV 85.1 MCH 28.4 MCHC 33.3 RDW 14.9 Plt Count 224 MPV 8.4 Neutrophils % 76.9 Lymphocytes % 12.1 D Monocytes % 10.3 H Eosinophils % 0.4 D Basophils % 0.3 PT with INR INR Sodium 138 Potassium 3.6 Chloride 100 Carbon Dioxide 30 Anion Gap 8 BUN 14 Creatinine 0.6 L Creat Clearance w eGFR > 60 POC Glucometer Random Glucose 139 H D Lactic Acid Calcium 8.2 L Phosphorus 2.6 Magnesium 2.4 D Total Bilirubin 2.7 H Direct Bilirubin 1.8 H AST 162 H D ALT 203 H Alkaline Phosphatase 372 H Creatine Kinase Troponin I Total Protein 6.4 Albumin 3.0 L Lipase Urine Color Urine Appearance Urine pH Ur Specific [place] Urine Protein Urine Glucose (UA) Urine Ketones Urine Blood Urine Nitrite Urine Bilirubin Urine Urobilinogen Urine RBC Urine WBC Ur Epithelial Cells Urine Mucus 05/23/17 08:00 WBC RBC Hgb Hct MCV MCH MCHC RDW Plt Count MPV Neutrophils % Lymphocytes % Monocytes % Eosinophils % Basophils % PT with INR INR Sodium Potassium Chloride Carbon Dioxide Anion Gap BUN Creatinine Creat Clearance w eGFR POC Glucometer Random Glucose Lactic Acid Calcium Phosphorus Magnesium Total Bilirubin Direct Bilirubin AST ALT Alkaline Phosphatase Creatine Kinase Troponin I Total Protein Albumin Lipase Urine Color [place]i Urine Appearance Clear Urine pH 7.0 Ur Specific [place] 1.020 Urine Protein 1+ H Urine Glucose (UA) Negative Urine Ketones Negative Urine Blood Negative Urine Nitrite Negative Urine Bilirubin Negative Urine Urobilinogen 4.0 e.u/dl Urine RBC 2 Urine WBC 2 Ur Epithelial Cells Rare Urine Mucus Rare Last Vital Signs Temp Pulse Resp BP Pulse Ox 97.6 F 72 72 H 136/91 97 05/23/17 09:00 05/23/17 09:00 05/23/17 09:00 05/23/17 09:00 05/23/17 09:00 Vital Signs (72 hours) 05/22/17 05/23/17 05/23/17 16:46 05:08 07:42 Temperature 101.3 F H 97.6 F 99.1 F Pulse Rate 88 72 72 Respiratory 18 18 20 Rate Blood Pressure 155/79 129/64 124/59 O2 Sat by Pulse 100 97 Oximetry (%) Imaging - Results Cat Scan: Report Reviewed Ultrasound: Report Reviewed (see HPI) Problem List - Problems (1) Cholelithiasis and acute cholecystitis with obstruction Code(s): K80.01 - CALCULUS OF GALLBLADDER W ACUTE CHOLECYSTITIS W OBSTRUCTION (2) Transaminitis Code(s): R74.0 - NONSPEC ELEV OF LEVELS OF TRANSAMNS & LACTIC ACID DEHYDRGNSE (3) Cholestasis Code(s): K83.1 - OBSTRUCTION OF BILE DUCT Assessment/Plan Improved Asymptomatic Afebrile, not icteric Transminases and ALP are trending down. Continue to monitor Likely passed gallstone stone, no evidence of GS pancreatitis. Agree with NPO, ABx, MRCP. (ERCP is a possibility depending on MCRCP results) Sx follow up to assess for cholesystectomy to mitigate future recurrence Visit type - Emergency Visit Emergency Visit: No - New Patient This patient is new to me today: Yes Date on this admission: 05/23/17 - Critical Care Critical Care patient: No
--- NOTE | 2017-05-23 12:38 | PN ---
Progress Note (short form) - Note Progress Note: ID consult dictated imp/reccd 81 year old man admitted with nausea and vomiting and some right sided abdominal pain and fever he was not aware he had fever noted to have abnl lfts and is having workup for biliary disease cholycystitis possible biliary sepsis- continue rocephin/flagyl f/u MRCP, f/u cultures gi/surgery following Problem List - Problems (1) Cholecystitis Code(s): K81.9 - CHOLECYSTITIS, UNSPECIFIED (2) Biliary sepsis Code(s): K83.0 - CHOLANGITIS
--- NOTE | 2017-05-23 13:33 | EKG ---
Test Reason : Blood Pressure : / mmHG Vent. Rate : 086 BPM Atrial Rate : 086 BPM P-R Int : 172 ms QRS Dur : 110 ms QT Int : 384 ms P-R-T Axes : 013 -50 055 degrees QTc Int : 459 ms BASE LINE ARTIFACTS NORMALSINUS RHYTHM INTERVENTRICULAR CONDUCTION DELAY LEFT ANTERIOR FASCICULAR BLOCK MODERATE VOLTAGE CRITERIA FOR LVH, MAY BE NORMAL VARIANT CANNOT RULE OUT SEPTAL INFARCT , AGE UNDETERMINED ABNORMAL ECG WHEN COMPARED WITH ECG OF 16-MAY-2008 13:56, MINIMAL CRITERIA FOR SEPTAL INFARCT ARE NOW PRESENT NONSPECIFIC T WAVE ABNORMALITY HAS REPLACED INVERTED T WAVES IN INFERIOR LEADS QT HAS LENGTHENED FOLLOW UP EKG IS RECOMMENDED Confirmed by KOBY RUIZ MD ([id number]) on 05/23/2017 1:32:36 PM Referred By: Confirmed By:KOBY RUIZ MD
--- NOTE | 2017-05-23 13:52 | SPA.PREOP ---
- PRE-OP NOTE Dx: Acute cholecystitis/cholelithiasis Planned Procedure: Lap cholecystectomy, possible open Surgeon: Raji Davis Consent: To be obtained after surgeon explained all risks, benefits and alternatives. Last Vital Signs Temp Pulse Resp BP Pulse Ox 97.6 F 72 72 H 136/91 97 05/23/17 09:00 05/23/17 09:00 05/23/17 09:00 05/23/17 09:00 05/23/17 09:00 CBC, BMP 05/23/17 06:00 05/23/17 06:00 LFT TREND 05/22/17 05/23/17 18:30 06:00 Total Bilirubin 3.0 H D 2.7 H AST 235 H D 162 H D ALT 252 H D 203 H Alkaline Phosphatase 440 H D 372 H - ASSESSMENT/PLAN Problem List - Problems (1) Cholecystitis Assessment/Plan: 1. NPO after midnight except PO meds 2. GI/DVT PPX 3. f/u MRCP --> possible ERCP pending results 4. Medical optimization / clearance Code(s): K81.9 - CHOLECYSTITIS, UNSPECIFIED Visit type - Case Type Case Type: ED Admission
--- NOTE | 2017-05-23 15:52 | PN ---
Physical Exam: SUBJECTIVE: Patient seen and examined Says he has no abdominal pain or fevers this morning. OBJECTIVE: Vital Signs Period Temp Pulse Resp BP Sys/Lopes Pulse Ox Last 24 Hr 97.6 F-99.1 F 72-72 18-72 124-136/59-91 97-97 GENERAL: The patient is awake, alert, and fully oriented, in no acute distress. HEAD: Normal with no signs of trauma. EYES: PERRL, extraocular movements intact, sclera anicteric, conjunctiva clear. No ptosis. ENT: Ears normal, nares patent, oropharynx clear without exudates, moist mucous membranes. NECK: Trachea midline, full range of motion, supple. LUNGS: Breath sounds equal, clear to auscultation bilaterally, no wheezes, no crackles, no accessory muscle use. HEART: Regular rate and rhythm, S1, S2 grade 3/6 systolic murmur LSB, radiating to carotids,grade 3/6 systolic murmur L5 intercostal space radiating to axilla, diastolic murmur RSB. ABDOMEN: Soft, nontender, nondistended, normoactive bowel sounds, no guarding, no rebound, no hepatosplenomegaly, no masses. Cruz's sign negative. EXTREMITIES: 2+ pulses, warm, well-perfused, no edema. NEUROLOGICAL: Cranial nerves II through XII grossly intact. Normal speech, gait not observed. PSYCH: Normal mood, normal affect. SKIN: Warm, dry, normal turgor, no rashes or lesions noted Laboratory Results - last 24 hr 05/23/17 05/23/17 05/23/17 05:55 06:00 06:00 WBC 5.9 D RBC 4.30 Hgb 12.2 Hct 36.6 MCV 85.1 MCH 28.4 MCHC 33.3 RDW 14.9 Plt Count 224 MPV 8.4 Neutrophils % 76.9 Lymphocytes % 12.1 D Monocytes % 10.3 H Eosinophils % 0.4 D Basophils % 0.3 Sodium 138 Potassium 3.6 Chloride 100 Carbon Dioxide 30 Anion Gap 8 BUN 14 Creatinine 0.6 L Creat Clearance w eGFR > 60 POC Glucometer 139 Random Glucose 139 H D Calcium 8.2 L Phosphorus 2.6 Magnesium 2.4 D Total Bilirubin 2.7 H Direct Bilirubin AST 162 H D ALT 203 H Alkaline Phosphatase 372 H Total Protein 6.4 Albumin 3.0 L Urine Color Urine Appearance Urine pH Ur Specific [place] Urine Protein Urine Glucose (UA) Urine Ketones Urine Blood Urine Nitrite Urine Bilirubin Urine Urobilinogen Urine RBC Urine WBC Ur Epithelial Cells Urine Mucus 05/23/17 05/23/17 05/23/17 06:00 08:00 12:03 WBC RBC Hgb Hct MCV MCH MCHC RDW Plt Count MPV Neutrophils % Lymphocytes % Monocytes % Eosinophils % Basophils % Sodium Potassium Chloride Carbon Dioxide Anion Gap BUN Creatinine Creat Clearance w eGFR POC Glucometer 151 Random Glucose Calcium Phosphorus Magnesium Total Bilirubin Direct Bilirubin 1.8 H AST ALT Alkaline Phosphatase Total Protein Albumin Urine Color Nohemi Urine Appearance Clear Urine pH 7.0 Ur Specific [place] 1.020 Urine Protein 1+ H Urine Glucose (UA) Negative Urine Ketones Negative Urine Blood Negative Urine Nitrite Negative Urine Bilirubin Negative Urine Urobilinogen 4.0 e.u/dl Urine RBC 2 Urine WBC 2 Ur Epithelial Cells Rare Urine Mucus Rare Active Medications Generic Name Dose Route Start Last Admin Trade Name Freq PRN Reason Stop Dose Admin Heparin Sodium (Porcine) 5,000 unit 05/23/17 06:00 05/23/17 06:12 Heparin - SQ 5,000 unit TID DANA Administration Sodium Chloride 1,000 mls @ 83 mls/hr 05/23/17 01:00 05/23/17 01:19 Normal Saline - IV 83 mls/hr ASDIR DANA Administration Ceftriaxone Sodium 1 gm/ 50 mls @ 100 mls/hr 05/23/17 07:30 05/23/17 09:20 Dextrose IVPB 100 mls/hr DAILY DANA Administration Metronidazole 100 mls @ 100 mls/hr 05/23/17 07:45 05/23/17 09:28 Flagyl 500mg Premixed Ivpb - IVPB Not Given Q8H-IV DANA Insulin Aspart 1 vial 05/23/17 01:15 05/23/17 12:04 Novolog Vial Sliding Scale - SQ 2 units Q6HPO DANA Administration Protocol Levothyroxine Sodium 75 mcg 05/23/17 07:00 05/23/17 07:10 Synthroid - PO 75 mcg DAILY@0700 DANA Administration Metoprolol Tartrate 100 mg 05/23/17 10:00 05/23/17 09:26 Lopressor - PO 100 mg DAILY DANA Administration Tamsulosin HCl 0.4 mg 05/23/17 08:30 05/23/17 07:54 Flomax - PO 0.4 mg DAILY@0830 [facility] Administration ASSESSMENT/PLAN: 71yo M with PMH of UTI, BPH, dm, htn, hld, presents c/o Right-sided abdominal pain admitted for acute cholecystitis. #RUQ pain: Could be Choledocholithiasis: Hx of resolved RUQ pain, negative cruz sign and sonographic cruz sign, nausea and vomiting, pain related to ingestion of matheus foods, gall stones seen on Abd US and on CT abdomen. Transient transaminitis now trending down. Likely from a passed gall stone - npo - NS @ 83 ml/hr - type and screen ordered - Continue on ceftriaxone/ flagyl, received one dose of zosyn in ED - ID Consult - MRCP - GI consult- for likely ERCP if needed - Surgery Consult- for likely laparoscopic cholecystectomy Could be Cholelilithiasis Hx of resolved RUQ pain, nausea and vomiting, pain related to ingestion of matheus foods, gall stones seen on Abd US and on CT abdomen. - npo - NS @ 83 ml/hr - type and screen ordered - Continue on ceftriaxone/ flagyl, received one dose of zosyn in ED - ID Consult - MRCP - GI consult- for likely ERCP if needed - Surgery Consult- for likely laparoscopic cholecystectomy Could be acute cholecystitis Likely acute inflammation of the gall bladder at presentation that may have resolved for now but has a chance of recurrence if gall bladder not removed Based on history of fever, Hx of RUQ pain, nausea and vomiting, pain related to ingestion of fatty foods, gall bladder wall thickening on abd Us. Resolution likely for now because of negative cruz sign and sonographic cruz sign, absence of fevers or other features of infection - npo - NS @ 83 ml/hr - type and screen ordered - Continue on ceftriaxone/ flagyl, received one dose of zosyn in ED - ID Consult - Surgery Consult -pending cultures Could be Cholangitis Hx of resolved RUQ pain, negative cruz sign and sonographic cruz sign, nausea and vomiting, pain related to ingestion of matheus foods, gall stones seen on Abd US and on CT abdomen. Transient transaminitis now trending down. Likely from a passed gall stone #transaminitis Trending down, could be as a result of resolution of an obstruction - may be 2/2 choledocholithiasis - MRCP - GI Consult #hypomagnesemia - repleted, now stable -Monitor #dm - blood glucose monitoring q6hr - sliding scale insulin - hold Glipizide/Metformin - hold long-acting insulin while pt is npo #hypothyroidism - continue home med of Synthroid 75mcg # htn - continue home med of Lopressor 100mg # bph - continue home med of tamsolusin 0.4mg daily #FEN - fluids: NS @ 83 ml/hr - electrolytes: continue to monitor - nutrition: npo #DVT prophylaxis - otni SCDs - Heparin 5000U q8hr -Hold heparin after midnight for likely laparoscopic cystectomy Visit type - Emergency Visit Emergency Visit: Yes ED Registration Date: 05/22/17 Care time: The patient presented to the Emergency Department on the above date and was hospitalized for further evaluation of their emergent condition. - New Patient This patient is new to me today: Yes Date on this admission: 05/23/17 - Critical Care Critical Care patient: No - Discharge Referral Referred to [facility] No
--- NOTE | 2017-05-23 16:09 | CONS ---
INFECTIOUS DISEASE CONSULTATION DATE OF CONSULTATION: DATE OF DICTATION: 05/23/2017 REQUESTING PHYSICIAN: The hospitalist service. HISTORY OF PRESENT ILLNESS: This is a 81-year-old man who comes to the emergency room with a 1-day history of nausea and vomiting and some right-sided pain. History was mainly from his daughter and who were present at the bedside. did not note any fevers at home. In the emergency room, he was found to have a fever of 101.3. He has had a normal bowel movement at home. He has no complaints of chest pain or cough. He was evaluated in the emergency room and found to have a fever of 101.3. He was noted to have abnormal liver function tests. He had a CAT scan of his abdomen that showed mild thickening of the gallbladder wall. He had a sonogram that showed sludge and wall thickening. He was given some fluids and IV piperacillin/tazobactam, and we are asked to see him for further recommendations. This morning, he reports resolution of his pain, and he is resting comfortably, has no further fever. PAST MEDICAL HISTORY: Notable for history of UTI, BPH, diabetes, hypertension, hyperlipidemia, and thyroid disease. PAST SURGICAL HISTORY: He has never had any surgery. ALLERGIES: He has no known drug allergies. MEDICATIONS: His medication list includes Synthroid, Lopressor, insulin. SOCIAL HISTORY: He lives with his . There is no history of any cigarette use. REVIEW OF SYSTEMS: He has had a normal bowel movement. He denies any chest pain, and his abdominal pain has resolved. PHYSICAL EXAMINATION: General: He is awake and alert. Vital Signs: Temperature is 97.6, pulse is 72, blood pressure is 136/91, respiratory rate is 20. HEENT: He is normocephalic. His eyes are anicteric. Neck: Supple. Lungs: Clear to auscultation. Heart: Regular rate and rhythm. Abdomen: Soft, nontender. Extremities: Without edema. DIAGNOSTIC DATA: White count was 9 on admission. This morning is 5.9. Hemoglobin 12.2, platelets of 224. INR is 1.2. BUN is 14 and creatinine 0.6. Total bilirubin is 2.7. AST of 162, ALT at 203, with an alkaline phosphatase at 372. Urinalysis has 2 white cells. Cultures are pending. In summary, this is a 81-year-old man admitted with fever, abnormal liver function tests. Concerns would include with fever and abnormal LFTs, rule out cholecystitis, rule out choledocholithiasis. He has plans for an MRCP with Surgery and GI followup. Would continue Rocephin and Flagyl at this time. Further recommendations to follow. KADEN BOONE M.D. SHANAE/[id number]
[2017-05-24] MEDS: INSULIN SLIDING SCALE (NOVOLOG) 1 VIAL SQ SCH ×4 (00:30→17:27)
[2017-05-24] MEDS: METRONIDAZOLE 500 MG PREMIXED 100 ML IVPB SCH ×3 (01:26→17:22)
[2017-05-24] MEDS: SODIUM CHLORIDE 1,000 ML IV SCH ×2 (01:27→13:18)
[2017-05-24] MEDS: HEPARIN NA (PORCINE) 5,000 UNITS/ML 1ML VIAL SQ SCH ×3 (06:04→21:43)
[2017-05-24] MEDS: LEVOTHYROXINE NA 75 MCG TABLET (FP) PO SCH (07:04)
[2017-05-24 07:41] LABS: BASOPHIL 0.5 % (0-2.0); EOSINOPHIL 1.6 % (0-4.5); MCH 28.5 pg (25.7-33.7); MCHC 33.2 g/dl (32.0-35.9); MEAN CELL VOLUME 85.7 fl (80-96); MEAN PLT VOLUME 8.3 fl (7.5-11.1); NEUTROPHILS 71.8 % (42.8-82.8); PLATELET COUNT 229 K/MM3 (134-434); RDW 14.7 % (11.9-15.9); WHITE BLOOD COUNT 4.2 K/mm3 (4.0-10.0)
[2017-05-24 07:57] LABS: ALBUMIN 2.8 g/dl (3.4-5.0); ALK PHOS 338 U/L (45-117); ANION GAP 10 (8-16); BILIRUBIN,TOTAL 0.9 mg/dL (0.2-1.0); CALCIUM 8.4 mg/dL (8.5-10.1); CO2 26 mmol/L (21-32); CREATININE 0.6 mg/dL (0.7-1.3); GLUCOSE,RANDOM 112 mg/dL (74-106); MAGNESIUM 2.1 mg/dL (1.8-2.4); PHOSPHOROUS 2.6 mg/dL (2.5-4.9); SGOT/AST 75 U/L (15-37); SGPT/ALT 136 U/L (12-78); TOT PROT 6.3 g/dl (6.4-8.2)
[2017-05-24] MEDS ORDERED: POTASSIUM CHLORIDE 20 MEQ PREMIX IVPB 100 ML IVPB ONE (08:22)
--- NOTE | 2017-05-24 08:23 | PN ---
Physical Exam: SUBJECTIVE: Patient seen and examined No new complaints. No abdominal pain Had the MRCP yesterday OBJECTIVE: Vital Signs Period Temp Pulse Resp BP Sys/Olpes Pulse Ox Last 24 Hr 97.6 F-99.3 F 61-72 18-72 129-150/62-91 97-97 GENERAL: The patient is awake, alert, and fully oriented, in no acute distress. HEAD: Normal with no signs of trauma. EYES: PERRL, extraocular movements intact, sclera anicteric, conjunctiva clear. No ptosis. ENT: Ears normal, nares patent, oropharynx clear without exudates, moist mucous membranes. NECK: Trachea midline, full range of motion, supple. LUNGS: Breath sounds equal, clear to auscultation bilaterally, no wheezes, no crackles, no accessory muscle use. HEART: Regular rate and rhythm, S1, S2 grade 3/6 systolic murmur LSB, radiating to carotids,grade 3/6 systolic murmur L5 intercostal space radiating to axilla, diastolic murmur RSB. ABDOMEN: Soft, nontender, nondistended, normoactive bowel sounds, no guarding, no rebound, no hepatosplenomegaly, no masses. Cruz's sign negative. EXTREMITIES: 2+ pulses, warm, well-perfused, no edema. NEUROLOGICAL: Cranial nerves II through XII grossly intact. Normal speech, gait not observed. PSYCH: Normal mood, normal affect. SKIN: Warm, dry, normal turgor, no rashes or lesions noted Laboratory Results - last 24 hr No growth -blood culture and urine culture 05/23/17 05/23/17 05/23/17 06:00 06:00 08:00 WBC RBC Hgb Hct MCV MCH MCHC RDW Plt Count MPV Neutrophils % Lymphocytes % Monocytes % Eosinophils % Basophils % Sodium 138 Potassium 3.6 Chloride 100 Carbon Dioxide 30 Anion Gap 8 BUN 14 Creatinine 0.6 L Creat Clearance w eGFR > 60 POC Glucometer Random Glucose 139 H D Calcium 8.2 L Phosphorus 2.6 Magnesium 2.4 D Total Bilirubin 2.7 H Direct Bilirubin 1.8 H AST 162 H D ALT 203 H Alkaline Phosphatase 372 H Total Protein 6.4 Albumin 3.0 L Urine Color Nohemi Urine Appearance Clear Urine pH 7.0 Ur Specific [place] 1.020 Urine Protein 1+ H Urine Glucose (UA) Negative Urine Ketones Negative Urine Blood Negative Urine Nitrite Negative Urine Bilirubin Negative Urine Urobilinogen 4.0 e.u/dl Urine RBC 2 Urine WBC 2 Ur Epithelial Cells Rare Urine Mucus Rare 05/23/17 05/23/17 05/24/17 12:03 17:12 00:24 WBC RBC Hgb Hct MCV MCH MCHC RDW Plt Count MPV Neutrophils % Lymphocytes % Monocytes % Eosinophils % Basophils % Sodium Potassium Chloride Carbon Dioxide Anion Gap BUN Creatinine Creat Clearance w eGFR POC Glucometer 151 100 78 Random Glucose Calcium Phosphorus Magnesium Total Bilirubin Direct Bilirubin AST ALT Alkaline Phosphatase Total Protein Albumin Urine Color Urine Appearance Urine pH Ur Specific [place] Urine Protein Urine Glucose (UA) Urine Ketones Urine Blood Urine Nitrite Urine Bilirubin Urine Urobilinogen Urine RBC Urine WBC Ur Epithelial Cells Urine Mucus 05/24/17 05/24/17 05/24/17 05:45 06:00 06:00 WBC 4.2 RBC 4.25 Hgb 12.1 Hct 36.4 MCV 85.7 MCH 28.5 MCHC 33.2 RDW 14.7 Plt Count 229 MPV 8.3 Neutrophils % 71.8 Lymphocytes % 15.3 D Monocytes % 10.8 H Eosinophils % 1.6 D Basophils % 0.5 Sodium 139 Potassium 3.4 L Chloride 103 Carbon Dioxide 26 Anion Gap 10 BUN 10 D Creatinine 0.6 L Creat Clearance w eGFR > 60 POC Glucometer 96 Random Glucose 112 H Calcium 8.4 L Phosphorus 2.6 Magnesium 2.1 Total Bilirubin 0.9 D Direct Bilirubin AST 75 H D ALT 136 H D Alkaline Phosphatase 338 H Total Protein 6.3 L Albumin 2.8 L Urine Color Urine Appearance Urine pH Ur Specific [place] Urine Protein Urine Glucose (UA) Urine Ketones Urine Blood Urine Nitrite Urine Bilirubin Urine Urobilinogen Urine RBC Urine WBC Ur Epithelial Cells Urine Mucus Active Medications Generic Name Dose Route Start Last Admin Trade Name Freq PRN Reason Stop Dose Admin Heparin Sodium (Porcine) 5,000 unit 05/23/17 06:00 05/24/17 06:04 Heparin - SQ 5,000 unit TID [facility] Administration Sodium Chloride 1,000 mls @ 83 mls/hr 05/23/17 01:00 05/24/17 01:27 Normal Saline - IV Not Given ASDIR [facility] Ceftriaxone Sodium 1 gm/ 50 mls @ 100 mls/hr 05/23/17 07:30 05/23/17 09:20 Dextrose IVPB 100 mls/hr DAILY DANA Administration Metronidazole 100 mls @ 100 mls/hr 05/23/17 07:45 05/24/17 01:26 Flagyl 500mg Premixed Ivpb - IVPB 100 mls/hr Q8H-IV DANA Administration Insulin Aspart 1 vial 05/23/17 01:15 05/24/17 06:04 Novolog Vial Sliding Scale - SQ Not Given Q6HPO [facility] Protocol Levothyroxine Sodium 75 mcg 05/23/17 07:00 05/24/17 07:04 Synthroid - PO 75 mcg DAILY@0700 DANA Administration Metoprolol Tartrate 100 mg 05/23/17 10:00 05/23/17 09:26 Lopressor - PO 100 mg DAILY DANA Administration Tamsulosin HCl 0.4 mg 05/23/17 08:30 05/23/17 07:54 Flomax - PO 0.4 mg DAILY@0830 DANA Administration ASSESSMENT/PLAN: 71yo M with PMH of UTI, BPH, dm, htn, hld, presents c/o Right-sided abdominal pain admitted for acute cholecystitis. #RUQ pain Due to Cholelilithiasis and Cholecystitis-MRCP Improving transamintitis resolved fevers and pain For ERCP routine For likely laparosopic cholecystectomy per surgeons Continue NPO after midnight Fluids Antibiotics- Metronidazole 500mg IV Q8H and ceftriaxone iV 1g daily #Transaminitis Resolving Likely due to a passed stone #Electrolyte abnormalities Replete as needed BMP #dm - blood glucose monitoring q6hr - sliding scale insulin - hold Glipizide/Metformin - hold long-acting insulin while pt is npo #hypothyroidism - continue home med of Synthroid 75mcg # htn - continue home med of Lopressor 100mg # bph - continue home med of tamsolusin 0.4mg daily #FEN - fluids: NS @ 83 ml/hr - electrolytes: continue to monitor - nutrition: npo #DVT prophylaxis - toni SCDs - Heparin 5000U q8hr Visit type - Emergency Visit Emergency Visit: Yes ED Registration Date: 05/22/17 Care time: The patient presented to the Emergency Department on the above date and was hospitalized for further evaluation of their emergent condition. - New Patient This patient is new to me today: No - Critical Care Critical Care patient: No - Discharge Referral Referred to [facility] No
[2017-05-24] MEDS: TAMSULOSIN HCL 0.4 MG CAP.ER.24H (FP) PO SCH (08:40)
--- NOTE | 2017-05-24 08:52 | PN ---
Teaching Attending Note Name of Resident: Sandrine Castillo ATTENDING PHYSICIAN STATEMENT I saw and evaluated the patient. I reviewed the resident's note and discussed the case with the resident. I agree with the resident's findings and plan as documented. SUBJECTIVE: Patient is comfortable with no acute distress, no RUQ pain. no fever or chills, no shortness of breath. OBJECTIVE: Vital Signs Temperature 98.3 F 05/24/17 05:59 Pulse Rate 72 05/24/17 05:59 Respiratory Rate 20 05/24/17 05:59 Blood Pressure 150/80 05/24/17 05:59 O2 Sat by Pulse Oximetry (%) 97 05/23/17 21:00 CBCD WBC 4.2 K/mm3 (4.0-10.0) 05/24/17 06:00 RBC 4.25 M/mm3 (4.00-5.60) 05/24/17 06:00 Hgb 12.1 GM/dL (11.7-16.9) 05/24/17 06:00 Hct 36.4 % (35.4-49) 05/24/17 06:00 MCV 85.7 fl (80-96) 05/24/17 06:00 MCHC 33.2 g/dl (32.0-35.9) 05/24/17 06:00 RDW 14.7 % (11.9-15.9) 05/24/17 06:00 Plt Count 229 K/MM3 (134-434) 05/24/17 06:00 MPV 8.3 fl (7.5-11.1) 05/24/17 06:00 CMP Sodium 139 mmol/L (136-145) 05/24/17 06:00 Potassium 3.4 mmol/L (3.5-5.1) L 05/24/17 06:00 Chloride 103 mmol/L (98-107) 05/24/17 06:00 Carbon Dioxide 26 mmol/L (21-32) 05/24/17 06:00 Anion Gap 10 (8-16) 05/24/17 06:00 BUN 10 mg/dL (7-18) D 05/24/17 06:00 Creatinine 0.6 mg/dL (0.7-1.3) L 05/24/17 06:00 Creat Clearance w eGFR > 60 (>60) 05/24/17 06:00 Random Glucose 112 mg/dL (74-106) H 05/24/17 06:00 Calcium 8.4 mg/dL (8.5-10.1) L 05/24/17 06:00 Total Bilirubin 0.9 mg/dL (0.2-1.0) D 05/24/17 06:00 AST 75 U/L (15-37) H D 05/24/17 06:00 ALT 136 U/L (12-78) H D 05/24/17 06:00 Alkaline Phosphatase 338 U/L (45-117) H 05/24/17 06:00 Total Protein 6.3 g/dl (6.4-8.2) L 05/24/17 06:00 Albumin 2.8 g/dl (3.4-5.0) L 05/24/17 06:00 CARDIAC ENZYMES Creatine Kinase 74 IU/L (39-308) 05/22/17 18:37 Troponin I < 0.02 ng/ml (0.00-0.05) 05/22/17 18:37 Current Medications Generic Name Dose Route Start Last Admin Trade Name Freq PRN Reason Stop Dose Admin Heparin Sodium (Porcine) 5,000 unit 05/23/17 06:00 05/24/17 06:04 Heparin - SQ 5,000 unit TID DANA Administration Sodium Chloride 1,000 mls @ 83 mls/hr 05/23/17 01:00 05/24/17 01:27 Normal Saline - IV Not Given ASDIR DANA Ceftriaxone Sodium 1 gm/ 50 mls @ 100 mls/hr 05/23/17 07:30 05/23/17 09:20 Dextrose IVPB 100 mls/hr DAILY DANA Administration Metronidazole 100 mls @ 100 mls/hr 05/23/17 07:45 05/24/17 01:26 Flagyl 500mg Premixed Ivpb - IVPB 100 mls/hr Q8H-IV DANA Administration Potassium Chloride 100 mls @ 100 mls/hr 05/24/17 08:30 Potassium Chloride 10 Meq Premix Ivpb - IVPB 05/24/17 10:29 Q1H DANA Insulin Aspart 1 vial 05/23/17 01:15 05/24/17 06:04 Novolog Vial Sliding Scale - SQ Not Given Q6HPO [facility] Protocol Levothyroxine Sodium 75 mcg 05/23/17 07:00 05/24/17 07:04 Synthroid - PO 75 mcg DAILY@0700 DANA Administration Metoprolol Tartrate 100 mg 05/23/17 10:00 05/23/17 09:26 Lopressor - PO 100 mg DAILY DANA Administration Tamsulosin HCl 0.4 mg 05/23/17 08:30 05/23/17 07:54 Flomax - PO 0.4 mg DAILY@0830 DANA Administration Home Medications Medication Instructions Recorded Insulin (Levemir) [Levemir Flexpen 30 units SQ HS 01/27/13 -] Metoprolol Tartrate [Lopressor -] 100 mg PO DAILY 01/27/13 Levothyroxine [Synthroid -] 75 mcg PO DAILY@0700 #0 tablet 02/04/13 Glipizide/Metformin HCl 1 each PO BID 05/23/17 [Glipizide-Metformin 5-500 mg] Simvastatin 80 mg PO HS 05/23/17 Tamsulosin HCl [Flomax] 0.4 mg PO DAILY 05/23/17 PE: No icteris Heart: SEM3/6.S1S2 positive Abdomen: no abdominal pain appreciated. rest of PE per resident's note ASSESSMENT AND PLAN: 81 y/o man with h/o HTN, DM , HLP, and other medical problems who presented with RUQ pain and was found to have LFTS abnormalities, and gall stones # Acute RUQ pain:Resolved ; although there are gall stones and gall bladder wall thickening, the patient has no RUQ tenderness and Neg Cruz's sign. LFTS trending down will continue to monitor , not sure whether passed the stone ; r/ o cholangitis on IV antibiotic Rocephin and Flagyl IV, NpO .s/p zosyn. blood cx sent, Keep NPO , Surgery eval in progress , mRCP of abd to r/o obstructing stone in CBD , if this is the case , will need ERCP. Gi Consult appreciated # New Murmur noted; not sure whether this is old or new, will get an echo. # H/o HTN: cont BB # H/o Dm: SS with coverage DVT Px:
[2017-05-24] MEDS: CEFTRIAXONE 1 GM in DEXTROSE 5%-WATER - 50 ML IVPB SCH (09:00)
[2017-05-24] MEDS ORDERED: cefTRIAXone SODIUM 1 GM VIAL ONE (09:53)
[2017-05-24] MEDS ORDERED: DEXTROSE 5%-WATER - 50 ML IVPB ONE (09:54)
[2017-05-24] MEDS: METOPROLOL TARTRATE 50 MG TABLET (FP) PO SCH (10:00)
[2017-05-24] MEDS: KCL 10 MEQ IVPB 100 ML IVPB SCH ×2 (11:56→13:18)
--- NOTE | 2017-05-24 12:01 | PN ---
Progress Note (short form) - Note Progress Note: no complaints no abdominal pain Vital Signs Period Temp Pulse Resp BP Sys/Lopes Pulse Ox Last 24 Hr 97.3 F-99.3 F 61-77 18-20 129-150/62-80 97 cor-rrr lungs clear abd soft,nt ext no edema CBC, BMP 05/24/17 06:00 05/24/17 06:00 Microbiology 05/22/17 18:30 Blood - Peripheral Venous Blood Culture - Preliminary NO GROWTH OBTAINED AFTER 24 HOURS, INCUBATION TO CONTINUE FOR 4 DAYS. 05/22/17 18:30 Blood - Peripheral Venous Blood Culture - Preliminary NO GROWTH OBTAINED AFTER 24 HOURS, INCUBATION TO CONTINUE FOR 4 DAYS. Current Medications Heparin Sodium (Porcine) (Heparin -) 5,000 unit SQ TID [facility] Last Admin: 05/24/17 06:04 Dose: 5,000 unit Sodium Chloride (Normal Saline -) 1,000 mls @ 83 mls/hr IV ASDIR [facility] Last Admin: 05/24/17 01:27 Dose: Not Given Ceftriaxone Sodium 1 gm/ (Dextrose) 50 mls @ 100 mls/hr IVPB DAILY [facility] Last Admin: 05/24/17 09:00 Dose: 100 mls/hr Metronidazole (Flagyl 500mg Premixed Ivpb -) 100 mls @ 100 mls/hr IVPB Q8H-IV [facility] Last Admin: 05/24/17 10:00 Dose: 100 mls/hr Insulin Aspart (Novolog Vial Sliding Scale -) 1 vial SQ Q6HPO [facility] PRN Reason: Protocol Last Admin: 05/24/17 06:04 Dose: Not Given Levothyroxine Sodium (Synthroid -) 75 mcg PO DAILY@0700 [facility] Last Admin: 05/24/17 07:04 Dose: 75 mcg Metoprolol Tartrate (Lopressor -) 100 mg PO DAILY [facility] Last Admin: 05/24/17 10:00 Dose: 100 mg Tamsulosin HCl (Flomax -) 0.4 mg PO DAILY@0830 [facility] Last Admin: 05/24/17 08:40 Dose: 0.4 mg MRI- choledocholithiasis/cholycystitis a/p 81 year old man admitted with nausea and vomiting and some right sided abdominal pain and fever he was not aware he had fever noted to have abnl lfts and is having workup for biliary disease cholycystitis/choledocholithiasis- continue rocephin/flagyl gi/surgery following Problem List - Problems (1) Cholecystitis Code(s): K81.9 - CHOLECYSTITIS, UNSPECIFIED (2) Biliary sepsis Code(s): K83.0 - CHOLANGITIS
[2017-05-24] MEDS ORDERED: LEVOFLOXACIN 500 MG IVPB 100 ML IVPB ONE (13:59)
[2017-05-24] MEDS ORDERED: DEXAMETHASONE SOD PHOSPHATE 4 MG/1 ML VIAL ONE (14:00)
[2017-05-24] MEDS ORDERED: PROPOFOL 20 ML ONE (14:00)
[2017-05-24] MEDS ORDERED: ROCURONIUM BROMIDE 50 MG/5 ML VIAL ONE (14:00)
[2017-05-24] MEDS ORDERED: LIDOCAINE HCL/PF 2% SDV 5ML VIAL ONE (14:00)
[2017-05-24] MEDS ORDERED: MIDAZOLAM HCL 2 MG/2 ML SINGLE DOSE VIAL ONE (14:00)
--- NOTE | 2017-05-24 14:28 | PN ---
Progress Note (short form) - Note Progress Note: Attending Surgeon No c/o VSS AF abdomen-soft; NT MRCP/labs reviewed. IMP: choleldocholithiasis PLAN; Evaluation for ERCP followed by lap karina; will f/u. Raji Davis MD FACS
--- NOTE | 2017-05-24 16:42 | PN ---
Progress Note (short form) - Note Progress Note: MRCP positive for choledocolithiasis All Active Problems Cholelithiasis and acute cholecystitis with obstruction (Acute) Abnormal Lab Results 05/24/17 05/24/17 06:00 06:00 Monocytes % 10.8 H Potassium 3.4 L Creatinine 0.6 L Random Glucose 112 H Calcium 8.4 L AST 75 H D ALT 136 H D Alkaline Phosphatase 338 H Total Protein 6.3 L Albumin 2.8 L INR, PTT INR 1.23 (0.82-1.09) H 05/22/17 18:30 Last Vital Signs Temp Pulse Resp BP Pulse Ox 98.5 F 68 18 149/62 97 05/24/17 15:29 05/24/17 15:29 05/24/17 15:29 05/24/17 15:29 05/24/17 09:00 My Active Orders 05/25/17 00:01 NPO after midnight [DT] 05/25/17 12:48 ERCP [RADS] Routine 05/26/17 06:00 PT/INR (PROTHROMBIN TIME) AM Problem List - Problems (1) Cholelithiasis and acute cholecystitis with obstruction Code(s): K80.01 - CALCULUS OF GALLBLADDER W ACUTE CHOLECYSTITIS W OBSTRUCTION (2) Transaminitis Code(s): R74.0 - NONSPEC ELEV OF LEVELS OF TRANSAMNS & LACTIC ACID DEHYDRGNSE (3) Cholestasis Code(s): K83.1 - OBSTRUCTION OF BILE DUCT Visit type - Emergency Visit Emergency Visit: No - New Patient This patient is new to me today: No - Critical Care Critical Care patient: No
[2017-05-25] MEDS: METRONIDAZOLE 500 MG PREMIXED 100 ML IVPB SCH ×3 (01:46→17:56)
[2017-05-25] MEDS: INSULIN SLIDING SCALE (NOVOLOG) 1 VIAL SQ SCH ×4 (01:52→18:11)
[2017-05-25] MEDS: SODIUM CHLORIDE 1,000 ML IV SCH (02:00)
[2017-05-25] MEDS: HEPARIN NA (PORCINE) 5,000 UNITS/ML 1ML VIAL SQ SCH ×2 (06:03→14:04)
[2017-05-25] MEDS: LEVOTHYROXINE NA 75 MCG TABLET (FP) PO SCH (06:17)
[2017-05-25] MEDS ORDERED: DEXTROSE 50%-WATER 50 ML DISP.SYRIN IVPUSH ONE (06:23)
[2017-05-25 07:56] LABS: BASOPHIL 0.5 % (0-2.0); EOSINOPHIL 1.5 % (0-4.5); MCH 28.1 pg (25.7-33.7); MCHC 32.7 g/dl (32.0-35.9); MEAN PLT VOLUME 8.1 fl (7.5-11.1); NEUTROPHILS 63.7 % (42.8-82.8); PLATELET COUNT 269 K/MM3 (134-434); RDW 14.7 % (11.9-15.9); WHITE BLOOD COUNT 4.5 K/mm3 (4.0-10.0)
--- NOTE | 2017-05-25 08:11 | PN ---
Progress Note, Physician Chief Complaint: ID Asymptomatic Afebrile Ceftriaxone and metronidazole - Current Medication List Current Medications: Active Medications Heparin Sodium (Porcine) (Heparin -) 5,000 unit SQ TID [facility] Last Admin: 05/25/17 06:03 Dose: Not Given Sodium Chloride (Normal Saline -) 1,000 mls @ 83 mls/hr IV ASDIR [facility] Last Admin: 05/25/17 02:00 Dose: 83 mls/hr Ceftriaxone Sodium 1 gm/ (Dextrose) 50 mls @ 100 mls/hr IVPB DAILY [facility] Last Admin: 05/24/17 09:00 Dose: 100 mls/hr Metronidazole (Flagyl 500mg Premixed Ivpb -) 100 mls @ 100 mls/hr IVPB Q8H-IV [facility] Last Admin: 05/25/17 01:46 Dose: 100 mls/hr Insulin Aspart (Novolog Vial Sliding Scale -) 1 vial SQ Q6HPO [facility] PRN Reason: Protocol Last Admin: 05/25/17 06:03 Dose: Not Given Levothyroxine Sodium (Synthroid -) 75 mcg PO DAILY@0700 [facility] Last Admin: 05/25/17 06:17 Dose: 75 mcg Metoprolol Tartrate (Lopressor -) 100 mg PO DAILY [facility] Last Admin: 05/24/17 10:00 Dose: 100 mg Tamsulosin HCl (Flomax -) 0.4 mg PO DAILY@0830 [facility] Last Admin: 05/24/17 08:40 Dose: 0.4 mg - Objective Vital Signs: Vital Signs Temperature 97.9 F 05/25/17 07:03 Pulse Rate 70 05/25/17 07:03 Respiratory Rate 20 05/25/17 07:03 Blood Pressure 156/78 05/25/17 07:03 O2 Sat by Pulse Oximetry (%) 97 05/24/17 21:00 Constitutional: Yes: Well Nourished, No Distress Eyes: Yes: WNL, Conjunctiva Clear HENT: Yes: WNL, Atraumatic Neck: Yes: WNL, Supple Cardiovascular: Yes: Regular Rate and Rhythm, S1, S2. No: Murmur Respiratory: Yes: WNL, Regular, CTA Bilaterally Gastrointestinal: Yes: WNL, Normal Bowel Sounds, Soft. No: Tenderness, Tenderness, Rebound Edema: No Labs: CBC, BMP 05/25/17 06:30 INR, PTT INR 1.23 (0.82-1.09) H 05/22/17 18:30 Assessment/Plan Laboratory Tests 05/24/17 05/24/17 06:00 06:00 WBC 4.2 RBC 4.25 Plt Count 229 AST 75 H D ALT 136 H D Alkaline Phosphatase 338 H Microbiology 05/23/17 08:00 Urine - Urine Clean Catch Urine Culture - Final NO GROWTH OBTAINED 05/22/17 18:30 Blood - Peripheral Venous Blood Culture - Preliminary NO GROWTH OBTAINED AFTER 48 HOURS, INCUBATION TO CONTINUE FOR 3 DAYS. 05/22/17 18:30 Blood - Peripheral Venous Blood Culture - Preliminary NO GROWTH OBTAINED AFTER 48 HOURS, INCUBATION TO CONTINUE FOR 3 DAYS. Assessment Fever with choledocholithiasis neg blood cultures DM Murmur of aortic stenosis Plan Antibiotics ERCP today Cholecystectomy Rosana SÁNCHEZ
[2017-05-25 08:15] LABS: ALBUMIN 2.8 g/dl (3.4-5.0); ANION GAP 9 (8-16); BILIRUBIN,DIRECT 0.3 mg/dL (0.0-0.2); CALCIUM 8.3 mg/dL (8.5-10.1); CO2 26 mmol/L (21-32); CREATININE 0.6 mg/dL (0.7-1.3); GLUCOSE,RANDOM 63 mg/dL (74-106); PHOSPHOROUS 2.8 mg/dL (2.5-4.9); SGOT/AST 40 U/L (15-37); SGPT/ALT 95 U/L (12-78)
[2017-05-25 08:17] LABS: ALK PHOS 290 U/L (45-117); BILIRUBIN,TOTAL 0.7 mg/dL (0.2-1.0); TOT PROT 6.4 g/dl (6.4-8.2)
[2017-05-25] MEDS: TAMSULOSIN HCL 0.4 MG CAP.ER.24H (FP) PO SCH (08:29)
--- NOTE | 2017-05-25 10:18 | PN ---
Progress Note (short form) - Note Progress Note: Attending Surgeon No c/o VSS AF abdomen-soft; non tender WBC-nl LFT's-going down IMP:choledocholithiasis PLAN: Continue present tx.; awaiting ERCP and then lap karina. Raji Davis MD FACS
[2017-05-25] MEDS ORDERED: DEXTROSE 5%-WATER - 50 ML IVPB ONE (10:45)
[2017-05-25] MEDS ORDERED: cefTRIAXone SODIUM 1 GM VIAL ONE (10:45)
[2017-05-25] MEDS: METOPROLOL TARTRATE 50 MG TABLET (FP) PO SCH (11:08)
[2017-05-25] MEDS: CEFTRIAXONE 1 GM in DEXTROSE 5%-WATER - 50 ML IVPB SCH (11:09)
--- NOTE | 2017-05-25 12:50 | SPA.PREOP ---
- PRE-OP NOTE Dx: Acute cholecystitis/cholelithiasis Planned Procedure: Lap cholecystectomy, possible open Surgeon: Raji Davis Consent: To be obtained by surgeon after risks, benefits and alternatives explained to patient. Last Vital Signs Temp Pulse Resp BP Pulse Ox 98 F 76 20 150/76 97 05/25/17 09:24 05/25/17 09:24 05/25/17 09:24 05/25/17 09:24 05/24/17 21:00 Lab Results WBC 4.5 K/mm3 (4.0-10.0) 05/25/17 06:30 RBC 4.41 M/mm3 (4.00-5.60) 05/25/17 06:30 Hgb 12.4 GM/dL (11.7-16.9) 05/25/17 06:30 Hct 37.9 % (35.4-49) 05/25/17 06:30 MCV 86.0 fl (80-96) 05/25/17 06:30 MCHC 32.7 g/dl (32.0-35.9) 05/25/17 06:30 RDW 14.7 % (11.9-15.9) 05/25/17 06:30 Plt Count 269 K/MM3 (134-434) 05/25/17 06:30 Sodium 140 mmol/L (136-145) 05/25/17 06:30 Potassium 3.7 mmol/L (3.5-5.1) 05/25/17 06:30 Chloride 105 mmol/L (98-107) 05/25/17 06:30 Carbon Dioxide 26 mmol/L (21-32) 05/25/17 06:30 Anion Gap 9 (8-16) 05/25/17 06:30 BUN 8 mg/dL (7-18) 05/25/17 06:30 Creatinine 0.6 mg/dL (0.7-1.3) L 05/25/17 06:30 Random Glucose 63 mg/dL (74-106) L D 05/25/17 06:30 Calcium 8.3 mg/dL (8.5-10.1) L 05/25/17 06:30 Blood Type O POSITIVE 05/24/17 11:40 Antibody Screen Negative 05/24/17 11:40 INR 1.23 (0.82-1.09) H 05/22/17 18:30 - ASSESSMENT/PLAN Problem List - Problems (1) Cholecystitis Assessment/Plan: 1. Make NPO after midnight except PO meds 2. GI/DVT PPX 3. Medical optimization / clearance Code(s): K81.9 - CHOLECYSTITIS, UNSPECIFIED Visit type - Case Type Case Type: ED Admission
[2017-05-25 13:01] LABS: INR 1.22 (0.82-1.09); PROTHROMBIN TIME (PATIENT) 13.5 SEC (9.98-11.88)
[2017-05-25] MEDS ORDERED: ONDANSETRON 4 MG/2 ML VIAL ONE (14:47)
[2017-05-25] MEDS ORDERED: SUCCINYLCHOLINE CHLORIDE 200 MG/10 ML VIAL ONE (15:01)
[2017-05-25] MEDS ORDERED: LABETALOL HCL 5 MG/1 ML (100MG/20 ML VIAL) ONE (15:18)
[2017-05-25] MEDS ORDERED: IOHEXOL 300 MG/ML INFUS..BTL IV ONE (15:35)
[2017-05-25] MEDS ORDERED: LABETALOL HCL 5 MG/1 ML (100MG/20 ML VIAL) IVPUSH ONE (15:55)
[2017-05-25] MEDS ORDERED: hydrALAZINE HCL 20 MG/ML VIAL ONE (16:21)
[2017-05-25] MEDS ORDERED: hydrALAZINE HCL 20 MG/ML VIAL IVPUSH ONE ×2 (16:23→16:35)
[2017-05-25] MEDS: D5-1/2NS+20 MEQ KCL - 1,000 ML IV SCH (17:48)
--- NOTE | 2017-05-25 19:28 | PN ---
Physical Exam: SUBJECTIVE: Patient seen and examined Had ERCP with stone removal OBJECTIVE: Vital Signs Period Temp Pulse Resp BP Sys/Lopes Pulse Ox Last 24 Hr 97.7 F-98.2 F 68-83 16-20 133-214/61-88 96-99 GENERAL: The patient is awake, alert, and fully oriented, in no acute distress. HEAD: Normal with no signs of trauma. EYES: PERRL, extraocular movements intact, sclera anicteric, conjunctiva clear. No ptosis. ENT: Ears normal, nares patent, oropharynx clear without exudates, moist mucous membranes. NECK: Trachea midline, full range of motion, supple. LUNGS: Breath sounds equal, clear to auscultation bilaterally, no wheezes, no crackles, no accessory muscle use. HEART: Regular rate and rhythm, S1, S2 grade 3/6 systolic murmur LSB, radiating to carotids,grade 3/6 systolic murmur L5 intercostal space radiating to axilla, diastolic murmur RSB. ABDOMEN: Soft, nontender, nondistended, normoactive bowel sounds, no guarding, no rebound, no hepatosplenomegaly, no masses. Cruz's sign negative. EXTREMITIES: 2+ pulses, warm, well-perfused, no edema. NEUROLOGICAL: Cranial nerves II through XII grossly intact. Normal speech, gait not observed. PSYCH: Normal mood, normal affect. SKIN: Warm, dry, normal turgor, no rashes or lesions noted Laboratory Results - last 24 hr 05/24/17 05/24/17 05/25/17 05:45 21:32 01:51 WBC RBC Hgb Hct MCV MCH MCHC RDW Plt Count MPV Neutrophils % Lymphocytes % Monocytes % Eosinophils % Basophils % PT with INR INR Sodium Potassium Chloride Carbon Dioxide Anion Gap BUN Creatinine Creat Clearance w eGFR POC Glucometer 96 86 67 Random Glucose Calcium Phosphorus Magnesium Total Bilirubin Direct Bilirubin AST ALT Alkaline Phosphatase Total Protein Albumin 05/25/17 05/25/17 05/25/17 05:52 06:30 06:30 WBC 4.5 RBC 4.41 Hgb 12.4 Hct 37.9 MCV 86.0 MCH 28.1 MCHC 32.7 RDW 14.7 Plt Count 269 MPV 8.1 Neutrophils % 63.7 Lymphocytes % 23.4 D Monocytes % 10.9 H Eosinophils % 1.5 Basophils % 0.5 PT with INR INR Sodium 140 Potassium 3.7 Chloride 105 Carbon Dioxide 26 Anion Gap 9 BUN 8 Creatinine 0.6 L Creat Clearance w eGFR > 60 POC Glucometer 63 Random Glucose 63 L D Calcium 8.3 L Phosphorus 2.8 Magnesium 2.0 Total Bilirubin 0.7 D Direct Bilirubin 0.3 H D AST 40 H D ALT 95 H D Alkaline Phosphatase 290 H Total Protein 6.4 Albumin 2.8 L 05/25/17 05/25/17 05/25/17 07:08 11:39 12:10 WBC RBC Hgb Hct MCV MCH MCHC RDW Plt Count MPV Neutrophils % Lymphocytes % Monocytes % Eosinophils % Basophils % PT with INR 13.50 H INR 1.22 H Sodium Potassium Chloride Carbon Dioxide Anion Gap BUN Creatinine Creat Clearance w eGFR POC Glucometer 183 144 Random Glucose Calcium Phosphorus Magnesium Total Bilirubin Direct Bilirubin AST ALT Alkaline Phosphatase Total Protein Albumin 05/25/17 17:42 WBC RBC Hgb Hct MCV MCH MCHC RDW Plt Count MPV Neutrophils % Lymphocytes % Monocytes % Eosinophils % Basophils % PT with INR INR Sodium Potassium Chloride Carbon Dioxide Anion Gap BUN Creatinine Creat Clearance w eGFR POC Glucometer 159 Random Glucose Calcium Phosphorus Magnesium Total Bilirubin Direct Bilirubin AST ALT Alkaline Phosphatase Total Protein Albumin Active Medications Generic Name Dose Route Start Last Admin Trade Name Freq PRN Reason Stop Dose Admin Heparin Sodium (Porcine) 5,000 unit 05/23/17 06:00 05/25/17 14:04 Heparin - SQ Not Given TID DANA Ceftriaxone Sodium 1 gm/ 50 mls @ 100 mls/hr 05/23/17 07:30 05/25/17 11:09 Dextrose IVPB 100 mls/hr DAILY DANA Administration Metronidazole 100 mls @ 100 mls/hr 05/23/17 07:45 05/25/17 17:56 Flagyl 500mg Premixed Ivpb - IVPB 100 mls/hr Q8H-IV DANA Administration Potassium Chloride/Dextrose/Sod Cl 1,000 mls @ 75 mls/hr 05/25/17 12:45 17:48 D5-1/2ns+20 Meq Kcl - IV 75 mls/hr ASDIR DANA Administration Insulin Aspart 1 vial 05/23/17 01:15 05/25/17 18:11 Novolog Vial Sliding Scale - SQ 2 units Q6HPO DANA Administration Protocol Levothyroxine Sodium 75 mcg 05/23/17 07:00 05/25/17 06:17 Synthroid - PO 75 mcg DAILY@0700 DANA Administration Metoprolol Tartrate 100 mg 05/23/17 10:00 05/25/17 11:08 Lopressor - PO 100 mg DAILY DANA Administration Tamsulosin HCl 0.4 mg 05/23/17 08:30 05/25/17 08:29 Flomax - PO Not Given DAILY@0830 [facility] ASSESSMENT/PLAN: 71yo M with PMH of UTI, BPH, dm, htn, hld, presents c/o Right-sided abdominal pain admitted for acute cholecystitis. #RUQ pain Due to Cholelilithiasis and Cholecystitis-MRCP Improving transamintitis resolved fevers and pain ERCP with stone removal For laparosopic cholecystectomy per surgeons Continue NPO after midnight Fluids- D51/2 NS +KCL Antibiotics- Metronidazole 500mg IV Q8H and ceftriaxone iV 1g daily #Transaminitis Resolving Likely due to a passed stone #Electrolyte abnormalities Replete as needed BMP #dm - blood glucose monitoring q6hr - sliding scale insulin - hold Glipizide/Metformin - hold long-acting insulin while pt is npo #hypothyroidism - continue home med of Synthroid 75mcg # htn - continue home med of Lopressor 100mg # bph - continue home med of tamsolusin 0.4mg daily #FEN - fluids: D%1/2NS @ 83 ml/hr - electrolytes: continue to monitor - nutrition: npo #DVT prophylaxis - toni SCDs - Heparin 5000U q8hr Visit type - Emergency Visit Emergency Visit: Yes ED Registration Date: 05/22/17 Care time: The patient presented to the Emergency Department on the above date and was hospitalized for further evaluation of their emergent condition. - New Patient This patient is new to me today: No - Critical Care Critical Care patient: No - Discharge Referral Referred to [facility] Med P.C.: No
--- NOTE | 2017-05-25 19:53 | PN ---
Teaching Attending Note Name of Resident: Sandrine Castillo ATTENDING PHYSICIAN STATEMENT I saw and evaluated the patient. I reviewed the resident's note and discussed the case with the resident. I agree with the resident's findings and plan as documented. SUBJECTIVE: Patient is comfortable, has no pain. OBJECTIVE: Vital Signs Temperature 97.8 F 05/25/17 17:00 Pulse Rate 83 05/25/17 17:00 Respiratory Rate 20 05/25/17 17:00 Blood Pressure 133/61 05/25/17 17:00 O2 Sat by Pulse Oximetry (%) 99 05/25/17 17:00 CBCD WBC 4.5 K/mm3 (4.0-10.0) 05/25/17 06:30 RBC 4.41 M/mm3 (4.00-5.60) 05/25/17 06:30 Hgb 12.4 GM/dL (11.7-16.9) 05/25/17 06:30 Hct 37.9 % (35.4-49) 05/25/17 06:30 MCV 86.0 fl (80-96) 05/25/17 06:30 MCHC 32.7 g/dl (32.0-35.9) 05/25/17 06:30 RDW 14.7 % (11.9-15.9) 05/25/17 06:30 Plt Count 269 K/MM3 (134-434) 05/25/17 06:30 MPV 8.1 fl (7.5-11.1) 05/25/17 06:30 CMP Sodium 140 mmol/L (136-145) 05/25/17 06:30 Potassium 3.7 mmol/L (3.5-5.1) 05/25/17 06:30 Chloride 105 mmol/L (98-107) 05/25/17 06:30 Carbon Dioxide 26 mmol/L (21-32) 05/25/17 06:30 Anion Gap 9 (8-16) 05/25/17 06:30 BUN 8 mg/dL (7-18) 05/25/17 06:30 Creatinine 0.6 mg/dL (0.7-1.3) L 05/25/17 06:30 Creat Clearance w eGFR > 60 (>60) 05/25/17 06:30 Random Glucose 63 mg/dL (74-106) L D 05/25/17 06:30 Calcium 8.3 mg/dL (8.5-10.1) L 05/25/17 06:30 Total Bilirubin 0.7 mg/dL (0.2-1.0) D 05/25/17 06:30 AST 40 U/L (15-37) H D 05/25/17 06:30 ALT 95 U/L (12-78) H D 05/25/17 06:30 Alkaline Phosphatase 290 U/L (45-117) H 05/25/17 06:30 Total Protein 6.4 g/dl (6.4-8.2) 05/25/17 06:30 Albumin 2.8 g/dl (3.4-5.0) L 05/25/17 06:30 CARDIAC ENZYMES Creatine Kinase 74 IU/L (39-308) 05/22/17 18:37 Troponin I < 0.02 ng/ml (0.00-0.05) 05/22/17 18:37 Current Medications Generic Name Dose Route Start Last Admin Trade Name Tara PRN Reason Stop Dose Admin Heparin Sodium (Porcine) 5,000 unit 05/23/17 06:00 05/25/17 14:04 Heparin - SQ Not Given TID DANA Ceftriaxone Sodium 1 gm/ 50 mls @ 100 mls/hr 05/23/17 07:30 05/25/17 11:09 Dextrose IVPB 100 mls/hr DAILY DANA Administration Metronidazole 100 mls @ 100 mls/hr 05/23/17 07:45 05/25/17 17:56 Flagyl 500mg Premixed Ivpb - IVPB 100 mls/hr Q8H-IV DANA Administration Potassium Chloride/Dextrose/Sod Cl 1,000 mls @ 75 mls/hr 05/25/17 12:45 17:48 D5-1/2ns+20 Meq Kcl - IV 75 mls/hr ASDIR DANA Administration Insulin Aspart 1 vial 05/23/17 01:15 05/25/17 18:11 Novolog Vial Sliding Scale - SQ 2 units Q6HPO DANA Administration Protocol Levothyroxine Sodium 75 mcg 05/23/17 07:00 05/25/17 06:17 Synthroid - PO 75 mcg DAILY@0700 DANA Administration Metoprolol Tartrate 100 mg 05/23/17 10:00 05/25/17 11:08 Lopressor - PO 100 mg DAILY [facility] Administration Tamsulosin HCl 0.4 mg 05/23/17 08:30 05/25/17 08:29 Flomax - PO Not Given DAILY@0830 [facility] Home Medications Medication Instructions Recorded Insulin (Levemir) [Levemir Flexpen 30 units SQ HS 01/27/13 -] Metoprolol Tartrate [Lopressor -] 100 mg PO DAILY 01/27/13 Levothyroxine [Synthroid -] 75 mcg PO DAILY@0700 #0 tablet 02/04/13 Glipizide/Metformin HCl 1 each PO BID 05/23/17 [Glipizide-Metformin 5-500 mg] Simvastatin 80 mg PO HS 05/23/17 Tamsulosin HCl [Flomax] 0.4 mg PO DAILY 05/23/17 PE: No icteris Heart: SEM3/6.S1S2 positive Abdomen: no abdominal pain appreciated. positive for BS rest of PE per resident's note ASSESSMENT AND PLAN: 81 y/o man with h/o HTN, DM , HLP, and other medical problems who presented with RUQ pain and was found to have LFTS abnormalities, and gall stones # Acute cholecystits : patient is going to OR in am for cholecystectomy continue IV antibiotics d # New Murmur noted; not sure whether this is old or new,; Echo result reviewed EJF 54%, mild to moderate TR, moderate aortic regurgitation. # H/o HTN: cont BB # H/o Dm: SS with coverage DVT Px: Heparin NPO tonight for sx in am
[2017-05-26] MEDS: INSULIN SLIDING SCALE (NOVOLOG) 1 VIAL SQ SCH ×5 (00:19→17:51)
[2017-05-26] MEDS: METRONIDAZOLE 500 MG PREMIXED 100 ML IVPB SCH ×3 (02:10→17:51)
[2017-05-26] MEDS: LEVOTHYROXINE NA 75 MCG TABLET (FP) PO SCH (06:50)
[2017-05-26 07:15] LABS: BASOPHIL 0.3 % (0-2.0); EOSINOPHIL 0.3 % (0-4.5); MCH 28.6 pg (25.7-33.7); MCHC 33.4 g/dl (32.0-35.9); MEAN CELL VOLUME 85.5 fl (80-96); NEUTROPHILS 75.7 % (42.8-82.8); PLATELET COUNT 264 K/MM3 (134-434); RDW 14.7 % (11.9-15.9); WHITE BLOOD COUNT 4.5 K/mm3 (4.0-10.0)
--- NOTE | 2017-05-26 07:34 | PN ---
Progress Note, Physician History of Present Illness: S/p uneventful ERCP with sphincretomy. Multiple gallstones - Current Medication List Current Medications: Active Medications Heparin Sodium (Porcine) (Heparin -) 5,000 unit SQ TID COUNTS INCLUDE 234 BEDS AT THE [facility] Last Admin: 05/25/17 14:04 Dose: Not Given Ceftriaxone Sodium 1 gm/ (Dextrose) 50 mls @ 100 mls/hr IVPB DAILY COUNTS INCLUDE 234 BEDS AT THE [facility] Last Admin: 05/25/17 11:09 Dose: 100 mls/hr Metronidazole (Flagyl 500mg Premixed Ivpb -) 100 mls @ 100 mls/hr IVPB Q8H-IV COUNTS INCLUDE 234 BEDS AT THE [facility] Last Admin: 05/26/17 02:10 Dose: 100 mls/hr Potassium Chloride/Dextrose/Sod Cl (D5-1/2ns+20 Meq Kcl -) 1,000 mls @ 75 mls/ hr IV ASDIR COUNTS INCLUDE 234 BEDS AT THE [facility] Last Admin: 05/25/17 17:48 Dose: 75 mls/hr Insulin Aspart (Novolog Vial Sliding Scale -) 1 vial SQ Q6HPO COUNTS INCLUDE 234 BEDS AT THE [facility] PRN Reason: Protocol Last Admin: 05/26/17 06:52 Dose: Not Given Levothyroxine Sodium (Synthroid -) 75 mcg PO DAILY@0700 COUNTS INCLUDE 234 BEDS AT THE [facility] Last Admin: 05/26/17 06:50 Dose: Not Given Metoprolol Tartrate (Lopressor -) 100 mg PO DAILY COUNTS INCLUDE 234 BEDS AT THE [facility] Last Admin: 05/25/17 11:08 Dose: 100 mg Tamsulosin HCl (Flomax -) 0.4 mg PO DAILY@0830 COUNTS INCLUDE 234 BEDS AT THE [facility] Last Admin: 05/25/17 08:29 Dose: Not Given - Objective Vital Signs: Vital Signs Temperature 98 F 05/26/17 01:00 Pulse Rate 91 H 05/26/17 01:00 Respiratory Rate 20 05/26/17 01:00 Blood Pressure 116/60 05/26/17 01:00 O2 Sat by Pulse Oximetry (%) 99 05/25/17 21:00 Constitutional: Yes: No Distress, Calm Eyes: Yes: Conjunctiva Clear HENT: No: Hoarseness Neck: No: Decreased ROM, Tenderness Cardiovascular: Yes: Regular Rate and Rhythm Respiratory: Yes: Regular, CTA Bilaterally Gastrointestinal: Yes: Normal Bowel Sounds, Soft. No: Ascites, Distention, Hematemesis, Melena, Palpable Mass, Pulsatile Mass, Rectal Bleeding, Tenderness , Tenderness, Epigastrium, Tenderness, Rebound, Vomiting Integumentary: No: Jaundice Neurological: Yes: Alert, Oriented Labs: INR, PTT INR 1.22 (0.82-1.09) H 05/25/17 12:10 Abnormal Lab Results 05/25/17 05/25/17 05/25/17 06:30 06:30 12:10 Monocytes % 10.9 H PT with INR 13.50 H INR 1.22 H Creatinine 0.6 L Random Glucose 63 L D Calcium 8.3 L Direct Bilirubin 0.3 H D AST 40 H D ALT 95 H D Alkaline Phosphatase 290 H Albumin 2.8 L 05/26/17 07:02 Monocytes % 10.8 H PT with INR INR Creatinine Random Glucose Calcium Direct Bilirubin AST ALT Alkaline Phosphatase Albumin Active Orders - 24 Hr 05/25/17 12:45 D5-1/2Ns+20 Meq KCl - 1,000 ml IV ASDIR 05/26/17 00:01 NPO after midnight [DT] 05/26/17 07:02 AMYLASE Routine CMP [COMP METABOLIC PANEL] Routine HEPATIC FUNCTION PANEL Routine LIPASE Routine Problem List - Problems (1) Cholelithiasis and acute cholecystitis with obstruction Code(s): K80.01 - CALCULUS OF GALLBLADDER W ACUTE CHOLECYSTITIS W OBSTRUCTION (2) Transaminitis Code(s): R74.0 - NONSPEC ELEV OF LEVELS OF TRANSAMNS & LACTIC ACID DEHYDRGNSE (3) Cholestasis Code(s): K83.1 - OBSTRUCTION OF BILE DUCT Impression/Plan Impression/Plan: Comfortable, asymptomatic. AM labs pending Cholesystectomy Visit type - Emergency Visit Emergency Visit: No - New Patient This patient is new to me today: No - Critical Care Critical Care patient: No
[2017-05-26 07:38] LABS: ALBUMIN 2.6 g/dl (3.4-5.0); ALK PHOS 461 U/L (45-117); ANION GAP 9 (8-16); CALCIUM 8.3 mg/dL (8.5-10.1); CO2 26 mmol/L (21-32); CREATININE 0.7 mg/dL (0.7-1.3); GLUCOSE,RANDOM 168 mg/dL (74-106); SGOT/AST 116 U/L (15-37); SGPT/ALT 97 U/L (12-78)
--- NOTE | 2017-05-26 08:21 | PN ---
Progress Note, Physician Chief Complaint: ID Uneventful ERCP with stones Ceftriaxone metronidazole Afebrile - Current Medication List Current Medications: Active Medications Heparin Sodium (Porcine) (Heparin -) 5,000 unit SQ TID [facility] Last Admin: 05/25/17 14:04 Dose: Not Given Ceftriaxone Sodium 1 gm/ (Dextrose) 50 mls @ 100 mls/hr IVPB DAILY [facility] Last Admin: 05/25/17 11:09 Dose: 100 mls/hr Metronidazole (Flagyl 500mg Premixed Ivpb -) 100 mls @ 100 mls/hr IVPB Q8H-IV [facility] Last Admin: 05/26/17 02:10 Dose: 100 mls/hr Potassium Chloride/Dextrose/Sod Cl (D5-1/2ns+20 Meq Kcl -) 1,000 mls @ 75 mls/ hr IV ASDIR [facility] Last Admin: 05/25/17 17:48 Dose: 75 mls/hr Insulin Aspart (Novolog Vial Sliding Scale -) 1 vial SQ Q6HPO [facility] PRN Reason: Protocol Last Admin: 05/26/17 06:52 Dose: Not Given Levothyroxine Sodium (Synthroid -) 75 mcg PO DAILY@0700 [facility] Last Admin: 05/26/17 06:50 Dose: Not Given Metoprolol Tartrate (Lopressor -) 100 mg PO DAILY [facility] Last Admin: 05/25/17 11:08 Dose: 100 mg Tamsulosin HCl (Flomax -) 0.4 mg PO DAILY@0830 [facility] Last Admin: 05/25/17 08:29 Dose: Not Given - Objective Vital Signs: Vital Signs Temperature 98 F 05/26/17 01:00 Pulse Rate 91 H 05/26/17 01:00 Respiratory Rate 20 05/26/17 01:00 Blood Pressure 116/60 05/26/17 01:00 O2 Sat by Pulse Oximetry (%) 99 05/25/17 21:00 Constitutional: Yes: Well Nourished, No Distress HENT: Yes: WNL, Atraumatic Neck: Yes: WNL, Supple Cardiovascular: Yes: Regular Rate and Rhythm, S1, S2 Respiratory: Yes: WNL, Regular, CTA Bilaterally Gastrointestinal: Yes: WNL, Normal Bowel Sounds, Soft. No: Splenomegaly, Tenderness, Tenderness, Epigastrium, Tenderness, Rebound Labs: CBC, BMP 05/26/17 07:02 05/26/17 07:02 INR, PTT INR 1.22 (0.82-1.09) H 05/25/17 12:10 Assessment/Plan Laboratory Tests 05/26/17 05/26/17 07:02 07:02 WBC 4.5 Hgb 12.1 Plt Count 264 BUN 6 L D Creatinine 0.7 AST 116 H D ALT 97 H Alkaline Phosphatase 461 H D Microbiology 05/23/17 08:00 Urine - Urine Clean Catch Urine Culture - Final NO GROWTH OBTAINED 05/22/17 18:30 Blood - Peripheral Venous Blood Culture - Preliminary NO GROWTH OBTAINED AFTER 72 HOURS, INCUBATION TO CONTINUE FOR 2 DAYS. 05/22/17 18:30 Blood - Peripheral Venous Blood Culture - Preliminary NO GROWTH OBTAINED AFTER 72 HOURS, INCUBATION TO CONTINUE FOR 2 DAYS. Assessment Post ERCP Plan Cholecystectomy today Antibiotics can most likely be stopped by tomorrow Rosana SÁNCHEZ
[2017-05-26 08:31] LABS: AMYLASE 25 U/L (25-125)
[2017-05-26 08:32] LABS: ALBUMIN 2.6 g/dl (3.5-5.0); BILIRUBIN,DIRECT 1.6 mg/dl (0.0-0.2)
[2017-05-26] MEDS: METOPROLOL TARTRATE 50 MG TABLET (FP) PO SCH (09:49)
[2017-05-26] MEDS ORDERED: cefTRIAXone SODIUM 1 GM VIAL ONE (09:51)
[2017-05-26] MEDS ORDERED: DEXTROSE 5%-WATER - 50 ML IVPB ONE (09:51)
[2017-05-26] MEDS: CEFTRIAXONE 1 GM in DEXTROSE 5%-WATER - 50 ML IVPB SCH (09:55)
[2017-05-26] MEDS: TAMSULOSIN HCL 0.4 MG CAP.ER.24H (FP) PO SCH (09:55)
[2017-05-26] MEDS: D5-1/2NS+20 MEQ KCL - 1,000 ML IV SCH ×2 (09:58→18:48)
--- NOTE | 2017-05-26 10:26 | PN ---
Progress Note (short form) - Note Progress Note: Attending Surgeon No c/o VSS AF abdomen-soft labs noted IMP: choledocholithiasis/cholelithiasis s/p ERCP PLAN: lap karina today; r/b/t/a's d/w him in [place] and informed consent obtained. Raji Davis MD FACS
[2017-05-26] MEDS ORDERED: BUPIVACAINE HCL/PF 0.5% (5MG/ML) 10 ML VIAL ONE (11:14)
[2017-05-26] MEDS ORDERED: PROPOFOL 20 ML ONE (11:40)
[2017-05-26] MEDS ORDERED: ROCURONIUM BROMIDE 50 MG/5 ML VIAL ONE (11:40)
[2017-05-26] MEDS ORDERED: BUPIVACAINE HCL/PF (5 MG/ML) 30 ML VIAL IJ ONE (13:25)
[2017-05-26] MEDS ORDERED: DEXAMETHASONE SOD PHOSPHATE 4 MG/1 ML VIAL ONE (13:29)
[2017-05-26] MEDS ORDERED: LIDOCAINE HCL/PF 2% SDV 5ML VIAL ONE (13:29)
[2017-05-26] MEDS ORDERED: LIDOCAINE HCL 2% JELLY (5 ML/TUBE) ONE (13:29)
[2017-05-26] MEDS ORDERED: GLYCOPYRROLATE 0.2 MG/1 ML VIAL ONE (13:32)
[2017-05-26] MEDS ORDERED: NEOSTIGMINE METHYLSULFATE 0.5 MG/ML - 10 ML MDV ONE (13:32)
--- NOTE | 2017-05-26 13:55 | OP ---
Operative Note - Note: Operative Date: 05/26/17 Pre-Operative Diagnosis: cholelithiasis; choledocholithiasis Operation: lap karina Findings: cholelithiasis; distended gallbladder Post-Operative Diagnosis: Same as Pre-op Surgeon: Raji Davis Structural Engineering Project Manager: Hannah Elena Anesthesiologist/STRUCTURAL ENGINEERING PROJECT MANAGER: Sophia Aburto MD Anesthesia: General Specimens Removed: gallbladder and contents Estimated Blood Loss (mls): 100 Drains & Tubes with Location: 10 mm CLARISSA
[2017-05-26] MEDS ORDERED: ONDANSETRON 4 MG/2 ML VIAL IVPUSH PRN ×2 (14:10→16:08)
[2017-05-26] MEDS ORDERED: LACTATED RINGERS SOLUTION 1,000 ML IV SCH (14:15)
--- NOTE | 2017-05-26 14:59 | PN ---
Physical Exam: SUBJECTIVE: Patient seen and examined Had ERCP yesterday. Has no abdominal pain this am. Said he passed loose stool today. Scheduled for laparoscopic Cholecystectomy today OBJECTIVE: Vital Signs Period Temp Pulse Resp BP Sys/Lopes Pulse Ox Last 24 Hr 97.6 F-98.2 F 63-91 16-20 104-214/43-88 99-99 GENERAL: The patient is awake, alert, and fully oriented, in no acute distress. HEAD: Normal with no signs of trauma. EYES: PERRL, extraocular movements intact, sclera anicteric, conjunctiva clear. No ptosis. ENT: Ears normal, nares patent, oropharynx clear without exudates, moist mucous membranes. NECK: Trachea midline, full range of motion, supple. LUNGS: Breath sounds equal, clear to auscultation bilaterally, no wheezes, no crackles, no accessory muscle use. HEART: Regular rate and rhythm, S1, S2 grade 3/6 systolic murmur LSB, radiating to carotids,grade 3/6 systolic murmur L5 intercostal space radiating to axilla, diastolic murmur RSB. ABDOMEN: Soft, nontender, nondistended, normoactive bowel sounds, no guarding, no rebound, no hepatosplenomegaly, no masses. Cruz's sign negative. EXTREMITIES: 2+ pulses, warm, well-perfused, no edema. NEUROLOGICAL: Cranial nerves II through XII grossly intact. Normal speech, gait not observed. PSYCH: Normal mood, normal affect. SKIN: Warm, dry, normal turgor, no rashes or lesions noted Laboratory Results - last 24 hr 05/25/17 05/26/17 05/26/17 17:42 00:18 06:52 WBC RBC Hgb Hct MCV MCH MCHC RDW Plt Count MPV Neutrophils % Lymphocytes % Monocytes % Eosinophils % Basophils % Sodium Potassium Chloride Carbon Dioxide Anion Gap BUN Creatinine Creat Clearance w eGFR POC Glucometer 159 155 150 Random Glucose Calcium Total Bilirubin Direct Bilirubin AST ALT Alkaline Phosphatase Total Protein Albumin Total Amylase Lipase 05/26/17 05/26/17 05/26/17 07:02 07:02 07:02 WBC 4.5 RBC 4.25 Hgb 12.1 Hct 36.3 MCV 85.5 MCH 28.6 MCHC 33.4 RDW 14.7 Plt Count 264 MPV 8.0 Neutrophils % 75.7 Lymphocytes % 12.9 D Monocytes % 10.8 H Eosinophils % 0.3 Basophils % 0.3 Sodium 138 Potassium 3.6 Chloride 103 Carbon Dioxide 26 Anion Gap 9 BUN 6 L D Creatinine 0.7 Creat Clearance w eGFR > 60 POC Glucometer Random Glucose 168 H D Calcium 8.3 L Total Bilirubin 2.0 H 2.0 H D Direct Bilirubin 1.6 H AST 116 H 116 H D ALT 96 H 97 H Alkaline Phosphatase 459 H 461 H D Total Protein 6.0 L 6.0 L Albumin 2.6 L 2.6 L Total Amylase 25 Lipase 71.5 H Active Medications Generic Name Dose Route Start Last Admin Trade Name Freq PRN Reason Stop Dose Admin Fentanyl 50 mcg 05/26/17 14:10 Sublimaze Injection - IVPUSH 05/29/17 14:11 [id number] PRN PAIN Heparin Sodium (Porcine) 5,000 unit 05/23/17 06:00 05/25/17 14:04 Heparin - SQ Not Given TID DANA Ceftriaxone Sodium 1 gm/ 50 mls @ 100 mls/hr 05/23/17 07:30 05/26/17 09:55 Dextrose IVPB 100 mls/hr DAILY DANA Administration Metronidazole 100 mls @ 100 mls/hr 05/23/17 07:45 05/26/17 10:52 Flagyl 500mg Premixed Ivpb - IVPB 100 mls/hr Q8H-IV DANA Administration Potassium Chloride/Dextrose/Sod Cl 1,000 mls @ 75 mls/hr 05/25/17 12:45 09:58 D5-1/2ns+20 Meq Kcl - IV 75 mls/hr ASDIR DANA Administration Lactated Ringer's 1,000 mls @ 75 mls/hr 05/26/17 14:15 Lactated Ringers Solution IV ASDIR DANA Insulin Aspart 1 vial 05/23/17 01:15 05/26/17 12:20 Novolog Vial Sliding Scale - SQ Not Given Q6HPO [facility] Protocol Levothyroxine Sodium 75 mcg 05/23/17 07:00 05/26/17 06:50 Synthroid - PO Not Given DAILY@0700 DANA Metoprolol Tartrate 100 mg 05/23/17 10:00 05/26/17 09:49 Lopressor - PO Not Given DAILY DANA Ondansetron HCl 4 mg 05/26/17 14:10 Zofran Injection IVPUSH 05/26/17 20:11 Q6H PRN NAUSEA AND/OR VOMITING Tamsulosin HCl 0.4 mg 05/23/17 08:30 05/26/17 09:55 Flomax - PO 0.4 mg DAILY@0830 [facility] Administration ASSESSMENT/PLAN: 71yo M with PMH of UTI, BPH, dm, htn, hld, presents c/o Right-sided abdominal pain admitted for acute cholecystitis s/p ERCP #RUQ pain Due to Cholelilithiasis and Cholecystitis s/p ERCP with stone removal Had laparoscopic cholecystectomy Fluids- D51/2 NS +KCL Antibiotics- Metronidazole 500mg IV Q8H and ceftriaxone iV 1g daily #Transaminitis Had a spike #Electrolyte abnormalities Replete as needed BMP #dm blood glucose monitoring q6hr sliding scale insulin hold Glipizide/Metformin hold long-acting insulin while pt is npo #hypothyroidism continue home med of Synthroid 75mcg # htn continue home med of Lopressor 100mg # bph continue home med of tamsolusin 0.4mg daily #FEN fluids: D51/2NS @ 83 ml/hr electrolytes: continue to monitor nutrition: npo #DVT prophylaxis toni SCDs Heparin 5000U q8hr Visit type - Emergency Visit Emergency Visit: Yes ED Registration Date: 05/22/17 Care time: The patient presented to the Emergency Department on the above date and was hospitalized for further evaluation of their emergent condition. - New Patient This patient is new to me today: No - Critical Care Critical Care patient: No - Discharge Referral Referred to [facility] Med P.C.: No
--- NOTE | 2017-05-26 15:11 | SURG ---
Surgery Debt Management Counselor Note Debt Management Counselor: Hannah Elena PA-C Date of Service: 05/26/17 Diagnosis: cholelithiasis; choledocholithiasis Procedure: quincy collins I was present for the entirety of the operative procedure. For further detail, please refer to operative report. Visit type - Case Type Case Type: ED Admission - Emergency Emergency Visit: Yes ED Registration Date: 05/22/17 Care time: The patient presented to the Emergency Department on the above date and was hospitalized for further evaluation of their emergent condition. - New patient This patient is new to me today: Yes Date on this admission: 05/26/17 - Critical Care Critical Care patient: No
[2017-05-26] MEDS ORDERED: oxyCODONE HCL 5 MG TABLET PO PRN ×2 (15:13→15:14)
[2017-05-26] MEDS ORDERED: D5-1/2NS+20 MEQ KCL - 1,000 ML IV SCH (16:08)
[2017-05-26] MEDS: LACTATED RINGERS SOLUTION 1,000 ML IV SCH (16:40)
--- NOTE | 2017-05-26 21:31 | PN ---
Teaching Attending Note Name of Resident: Sandrine Castillo ATTENDING PHYSICIAN STATEMENT I saw and evaluated the patient. I reviewed the resident's note and discussed the case with the resident. I agree with the resident's findings and plan as documented. SUBJECTIVE: comfortable with no acute distress. no shortness of breath OBJECTIVE: Vital Signs Temperature 97.9 F 05/26/17 16:30 Pulse Rate 64 05/26/17 16:30 Respiratory Rate 20 05/26/17 16:30 Blood Pressure 144/55 05/26/17 16:30 O2 Sat by Pulse Oximetry (%) 98 05/26/17 16:00 CBCD WBC 4.5 K/mm3 (4.0-10.0) 05/26/17 07:02 RBC 4.25 M/mm3 (4.00-5.60) 05/26/17 07:02 Hgb 12.1 GM/dL (11.7-16.9) 05/26/17 07:02 Hct 36.3 % (35.4-49) 05/26/17 07:02 MCV 85.5 fl (80-96) 05/26/17 07:02 MCHC 33.4 g/dl (32.0-35.9) 05/26/17 07:02 RDW 14.7 % (11.9-15.9) 05/26/17 07:02 Plt Count 264 K/MM3 (134-434) 05/26/17 07:02 MPV 8.0 fl (7.5-11.1) 05/26/17 07:02 CMP Sodium 138 mmol/L (136-145) 05/26/17 07:02 Potassium 3.6 mmol/L (3.5-5.1) 05/26/17 07:02 Chloride 103 mmol/L (98-107) 05/26/17 07:02 Carbon Dioxide 26 mmol/L (21-32) 05/26/17 07:02 Anion Gap 9 (8-16) 05/26/17 07:02 BUN 6 mg/dL (7-18) L D 05/26/17 07:02 Creatinine 0.7 mg/dL (0.7-1.3) 05/26/17 07:02 Creat Clearance w eGFR > 60 (>60) 05/26/17 07:02 Random Glucose 168 mg/dL (74-106) H D 05/26/17 07:02 Calcium 8.3 mg/dL (8.5-10.1) L 05/26/17 07:02 Total Bilirubin 2.0 mg/dl (0.2-1.0) H 05/26/17 07:02 AST 116 U/L (10-42) H 05/26/17 07:02 ALT 96 U/L (10-40) H 05/26/17 07:02 Alkaline Phosphatase 459 U/L (32-92) H 05/26/17 07:02 Total Protein 6.0 g/dl (6.4-8.3) L 05/26/17 07:02 Albumin 2.6 g/dl (3.5-5.0) L 05/26/17 07:02 CARDIAC ENZYMES Creatine Kinase 74 IU/L (39-308) 05/22/17 18:37 Troponin I < 0.02 ng/ml (0.00-0.05) 05/22/17 18:37 Current Medications Generic Name Dose Route Start Last Admin Trade Name Freq PRN Reason Stop Dose Admin Heparin Sodium (Porcine) 5,000 unit 05/27/17 14:00 Heparin - SQ TID DANA Ceftriaxone Sodium 1 gm/ 50 mls @ 100 mls/hr 05/27/17 10:00 Dextrose IVPB DAILY DANA Lactated Ringer's 1,000 mls @ 75 mls/hr 05/26/17 16:08 05/26/17 16:40 Lactated Ringers Solution IV 75 mls/hr ASDIR DANA Administration Metronidazole 100 mls @ 100 mls/hr 05/26/17 18:00 05/26/17 17:51 Flagyl 500mg Premixed Ivpb - IVPB 100 mls/hr Q8H-IV DANA Administration Insulin Aspart 1 vial 05/26/17 18:00 05/26/17 17:51 Novolog Vial Sliding Scale - SQ 4 units Q6HPO DANA Administration Protocol Levothyroxine Sodium 75 mcg 05/27/17 07:00 Synthroid - PO DAILY@0700 DANA Metoprolol Tartrate 100 mg 05/27/17 10:00 Lopressor - PO DAILY DANA Oxycodone HCl 5 mg 05/26/17 15:13 Roxicodone - PO Q6H PRN PAIN LEVEL 1-5 Oxycodone HCl 10 mg 05/26/17 15:14 05/26/17 16:41 Roxicodone - PO 10 mg Q6H PRN Administration PAIN LEVEL 6-10 Tamsulosin HCl 0.4 mg 05/27/17 08:30 Flomax - PO DAILY@0830 [facility] Home Medications Medication Instructions Recorded Insulin (Levemir) [Levemir Flexpen 30 units SQ HS 01/27/13 -] Metoprolol Tartrate [Lopressor -] 100 mg PO DAILY 01/27/13 Levothyroxine [Synthroid -] 75 mcg PO DAILY@0700 #0 tablet 02/04/13 Glipizide/Metformin HCl 1 each PO BID 05/23/17 [Glipizide-Metformin 5-500 mg] Simvastatin 80 mg PO HS 05/23/17 Tamsulosin HCl [Flomax] 0.4 mg PO DAILY 05/23/17 PE: No icteris , comfortable, NAD Heart: SEM3/6.S1S2 positive Abdomen: no abdominal pain appreciated. positive for BS, positive for CLARISSA drainage rest of PE per resident's note ASSESSMENT AND PLAN: 81 y/o man with h/o HTN, DM , HLP, and other medical problems who presented with RUQ pain and was found to have LFTS abnormalities, and gall stones # POD #0 s/p Lap cholecystectomy continue IV antibiotics for now.montor LFts , cbc, s/p ERCP with sphincterotomy due to choledocholithiasis/cholelithiasis 05/23 # New Murmur noted; not sure whether this is old or new,; Echo result reviewed EJF 54%, mild to moderate TR, moderate aortic regurgitation. # H/o HTN: cont BB # H/o Dm: SS with coverage DVT Px: Heparin
[2017-05-27] MEDS: INSULIN SLIDING SCALE (NOVOLOG) 1 VIAL SQ SCH ×5 (00:27→23:00)
[2017-05-27] MEDS: METRONIDAZOLE 500 MG PREMIXED 100 ML IVPB SCH (01:49)
[2017-05-27] MEDS: LEVOTHYROXINE NA 75 MCG TABLET (FP) PO SCH (06:39)
[2017-05-27] MEDS: LACTATED RINGERS SOLUTION 1,000 ML IV SCH ×2 (07:19→17:23)
--- NOTE | 2017-05-27 07:47 | PN ---
Progress Note, Physician Chief Complaint: ID S/P Lap cholecystectomy yesterday Feels well today Afebrile - Current Medication List Current Medications: Active Medications Heparin Sodium (Porcine) (Heparin -) 5,000 unit SQ TID [facility] Ceftriaxone Sodium 1 gm/ (Dextrose) 50 mls @ 100 mls/hr IVPB DAILY [facility] Lactated Ringer's (Lactated Ringers Solution) 1,000 mls @ 75 mls/hr IV ASDIR [facility] Last Admin: 05/26/17 16:40 Dose: 75 mls/hr Metronidazole (Flagyl 500mg Premixed Ivpb -) 100 mls @ 100 mls/hr IVPB Q8H-IV [facility] Last Admin: 05/27/17 01:49 Dose: 100 mls/hr Insulin Aspart (Novolog Vial Sliding Scale -) 1 vial SQ Q6HPO [facility] PRN Reason: Protocol Last Admin: 05/27/17 06:37 Dose: Not Given Levothyroxine Sodium (Synthroid -) 75 mcg PO DAILY@0700 [facility] Last Admin: 05/27/17 06:39 Dose: 75 mcg Metoprolol Tartrate (Lopressor -) 100 mg PO DAILY [facility] Oxycodone HCl (Roxicodone -) 5 mg PO Q6H PRN PRN Reason: PAIN LEVEL 1-5 Oxycodone HCl (Roxicodone -) 10 mg PO Q6H PRN PRN Reason: PAIN LEVEL 6-10 Last Admin: 05/26/17 16:41 Dose: 10 mg Tamsulosin HCl (Flomax -) 0.4 mg PO DAILY@0830 [facility] - Objective Vital Signs: Vital Signs Temperature 98.1 F 05/27/17 07:14 Pulse Rate 62 05/27/17 07:14 Respiratory Rate 20 05/27/17 07:14 Blood Pressure 139/59 05/27/17 07:14 O2 Sat by Pulse Oximetry (%) 98 05/26/17 21:00 Constitutional: Yes: Well Nourished, No Distress HENT: Yes: WNL, Atraumatic Neck: Yes: WNL, Supple Cardiovascular: Yes: Regular Rate and Rhythm, S1, S2. No: Murmur Respiratory: Yes: WNL, Regular, CTA Bilaterally Gastrointestinal: Yes: WNL, Normal Bowel Sounds, Soft, Other (dressings lap karina). No: Tenderness Labs: CBC, BMP 05/26/17 07:02 05/26/17 07:02 INR, PTT INR 1.22 (0.82-1.09) H 05/25/17 12:10 Assessment/Plan Microbiology 05/23/17 08:00 Urine - Urine Clean Catch Urine Culture - Final NO GROWTH OBTAINED 05/22/17 18:30 Blood - Peripheral Venous Blood Culture - Preliminary NO GROWTH OBTAINED AFTER 96 HOURS, INCUBATION TO CONTINUE FOR 1 DAYS. 05/22/17 18:30 Blood - Peripheral Venous Blood Culture - Preliminary NO GROWTH OBTAINED AFTER 96 HOURS, INCUBATION TO CONTINUE FOR 1 DAYS. Laboratory Tests 05/26/17 05/26/17 07:02 07:02 WBC 4.5 Hgb 12.1 Hct 36.3 Plt Count 264 BUN 6 L D Creatinine 0.7 AST 116 H D ALT 97 H Alkaline Phosphatase 461 H D Assessment Post ERCP followed by Xuan collins Febrile initially but neg cultures Gall bladder out Doing well post op Plan Will stop antibiotics now parenterally Rosana SÁNCHEZ
[2017-05-27 08:06] LABS: BASOPHIL 0.2 % (0-2.0); EOSINOPHIL 0.1 % (0-4.5); MCH 28.5 pg (25.7-33.7); MCHC 33.1 g/dl (32.0-35.9); MEAN PLT VOLUME 7.8 fl (7.5-11.1); NEUTROPHILS 84.7 % (42.8-82.8); PLATELET COUNT 284 K/MM3 (134-434); RDW 15.1 % (11.9-15.9); WHITE BLOOD COUNT 9.1 K/mm3 (4.0-10.0)
[2017-05-27 08:41] LABS: ALBUMIN 2.8 g/dl (3.4-5.0); ALK PHOS 376 U/L (45-117); ANION GAP 9 (8-16); BILIRUBIN,DIRECT 0.5 mg/dL (0.0-0.2); BILIRUBIN,TOTAL 0.8 mg/dL (0.2-1.0); CALCIUM 8.3 mg/dL (8.5-10.1); CO2 27 mmol/L (21-32); CREATININE 0.6 mg/dL (0.7-1.3); GLUCOSE,RANDOM 136 mg/dL (74-106); SGOT/AST 73 U/L (15-37); SGPT/ALT 86 U/L (12-78)
[2017-05-27] MEDS: METOPROLOL TARTRATE 50 MG TABLET (FP) PO SCH (09:20)
[2017-05-27] MEDS: TAMSULOSIN HCL 0.4 MG CAP.ER.24H (FP) PO SCH (09:20)
[2017-05-27] MEDS ORDERED: CEFTRIAXONE 1 GM in DEXTROSE 5%-WATER - 50 ML IVPB SCH (10:00)
[2017-05-27] MEDS: HEPARIN NA (PORCINE) 5,000 UNITS/ML 1ML VIAL SQ SCH ×2 (13:00→21:15)
--- NOTE | 2017-05-27 15:56 | PN ---
Physical Exam: SUBJECTIVE: Patient seen and examined Patient is feeling better, has no pain. OBJECTIVE: Vital Signs Temperature 98.1 F 05/27/17 15:14 Pulse Rate 77 05/27/17 15:14 Respiratory Rate 18 05/27/17 15:14 Blood Pressure 168/88 05/27/17 15:14 O2 Sat by Pulse Oximetry (%) 95 05/27/17 09:00 GENERAL: The patient is awake, alert, and fully oriented, in no acute distress. HEAD: Normal with no signs of trauma. EYES: PERRL, extraocular movements intact, sclera anicteric, conjunctiva clear. ENT: Ears normal, oropharynx clear without exudates, moist mucous membranes. NECK: Trachea midline, full range of motion, supple. LUNGS: Breath sounds equal, clear to auscultation bilaterally, no wheezes, no crackles, no accessory muscle use. HEART: Regular rate and rhythm, S1, S2 positive, KARLEE 3/6 . ABDOMEN: Soft, nontender, nondistended, normoactive bowel sounds, no guarding, no rebound, positive for CLARISSA drain around 30cc serosanginous fluid EXTREMITIES: 2+ pulses, warm, well-perfused, no edema. NEUROLOGICAL: Cranial nerves II through XII grossly intact. Normal speech, gait not observed. PSYCH: Normal mood, normal affect. SKIN: Warm, dry, normal turgor, no rashes or lesions noted Current Medications Generic Name Dose Route Start Last Admin Trade Name Freq PRN Reason Stop Dose Admin Heparin Sodium (Porcine) 5,000 unit 05/27/17 14:00 05/27/17 13:00 Heparin - SQ 5,000 unit TID DANA Administration Lactated Ringer's 1,000 mls @ 75 mls/hr 05/26/17 16:08 05/27/17 07:19 Lactated Ringers Solution IV 75 mls/hr ASDIR DANA Administration Insulin Aspart 1 vial 05/26/17 18:00 05/27/17 12:59 Novolog Vial Sliding Scale - SQ 2 units Q6HPO DANA Administration Protocol Levothyroxine Sodium 75 mcg 05/27/17 07:00 05/27/17 06:39 Synthroid - PO 75 mcg DAILY@0700 DANA Administration Metoprolol Tartrate 100 mg 05/27/17 10:00 05/27/17 09:20 Lopressor - PO 100 mg DAILY DANA Administration Oxycodone HCl 5 mg 05/26/17 15:13 Roxicodone - PO Q6H PRN PAIN LEVEL 1-5 Oxycodone HCl 10 mg 05/26/17 15:14 05/26/17 16:41 Roxicodone - PO 10 mg Q6H PRN Administration PAIN LEVEL 6-10 Tamsulosin HCl 0.4 mg 05/27/17 08:30 05/27/17 09:20 Flomax - PO 0.4 mg DAILY@0830 DANA Administration Home Medications Medication Instructions Recorded Insulin (Levemir) [Levemir Flexpen 30 units SQ HS 01/27/13 -] Metoprolol Tartrate [Lopressor -] 100 mg PO DAILY 01/27/13 Levothyroxine [Synthroid -] 75 mcg PO DAILY@0700 #0 tablet 02/04/13 Glipizide/Metformin HCl 1 each PO BID 05/23/17 [Glipizide-Metformin 5-500 mg] Simvastatin 80 mg PO HS 05/23/17 Tamsulosin HCl [Flomax] 0.4 mg PO DAILY 05/23/17 CBCD WBC 9.1 K/mm3 (4.0-10.0) D 05/27/17 07:00 RBC 4.21 M/mm3 (4.00-5.60) 05/27/17 07:00 Hgb 12.0 GM/dL (11.7-16.9) 05/27/17 07:00 Hct 36.2 % (35.4-49) 05/27/17 07:00 MCV 86.0 fl (80-96) 05/27/17 07:00 MCHC 33.1 g/dl (32.0-35.9) 05/27/17 07:00 RDW 15.1 % (11.9-15.9) 05/27/17 07:00 Plt Count 284 K/MM3 (134-434) 05/27/17 07:00 MPV 7.8 fl (7.5-11.1) 05/27/17 07:00 CMP Sodium 139 mmol/L (136-145) 05/27/17 07:00 Potassium 3.8 mmol/L (3.5-5.1) 05/27/17 07:00 Chloride 103 mmol/L (98-107) 05/27/17 07:00 Carbon Dioxide 27 mmol/L (21-32) 05/27/17 07:00 Anion Gap 9 (8-16) 05/27/17 07:00 BUN 10 mg/dL (7-18) D 05/27/17 07:00 Creatinine 0.6 mg/dL (0.7-1.3) L 05/27/17 07:00 Creat Clearance w eGFR > 60 (>60) 05/26/17 07:02 Random Glucose 136 mg/dL (74-106) H 05/27/17 07:00 Calcium 8.3 mg/dL (8.5-10.1) L 05/27/17 07:00 Total Bilirubin 0.8 mg/dL (0.2-1.0) D 05/27/17 07:00 AST 73 U/L (15-37) H D 05/27/17 07:00 ALT 86 U/L (12-78) H 05/27/17 07:00 Alkaline Phosphatase 376 U/L (45-117) H 05/27/17 07:00 Total Protein 6.0 g/dl (6.4-8.2) L 05/27/17 07:00 Albumin 2.8 g/dl (3.4-5.0) L 05/27/17 07:00 CARDIAC ENZYMES Creatine Kinase 74 IU/L (39-308) 05/22/17 18:37 Troponin I < 0.02 ng/ml (0.00-0.05) 05/22/17 18:37 Active Medications Generic Name Dose Route Start Last Admin Trade Name Tara PRN Reason Stop Dose Admin Heparin Sodium (Porcine) 5,000 unit 05/27/17 14:00 05/27/17 13:00 Heparin - SQ 5,000 unit TID DANA Administration Lactated Ringer's 1,000 mls @ 75 mls/hr 05/26/17 16:08 05/27/17 07:19 Lactated Ringers Solution IV 75 mls/hr ASDIR DANA Administration Insulin Aspart 1 vial 05/26/17 18:00 05/27/17 12:59 Novolog Vial Sliding Scale - SQ 2 units Q6HPO DANA Administration Protocol Levothyroxine Sodium 75 mcg 05/27/17 07:00 05/27/17 06:39 Synthroid - PO 75 mcg DAILY@0700 DANA Administration Metoprolol Tartrate 100 mg 05/27/17 10:00 05/27/17 09:20 Lopressor - PO 100 mg DAILY DANA Administration Oxycodone HCl 5 mg 05/26/17 15:13 Roxicodone - PO Q6H PRN PAIN LEVEL 1-5 Oxycodone HCl 10 mg 05/26/17 15:14 05/26/17 16:41 Roxicodone - PO 10 mg Q6H PRN Administration PAIN LEVEL 6-10 Tamsulosin HCl 0.4 mg 05/27/17 08:30 05/27/17 09:20 Flomax - PO 0.4 mg DAILY@0830 DANA Administration ASSESSMENT/PLAN: 81 y/o man with h/o HTN, DM , HLP, and other medical problems who presented with RUQ pain and was found to have LFTS abnormalities, and gall stones # POD #1 s/p Lap cholecystectomy , discontinued IV antibiotics as per ID , follow LFts , cbc, s/p ERCP with sphincterotomy due to choledocholithiasis/ cholelithiasis 05/23 # Hypertension Uncontrolled will add Norvasc 5 mg po daily to lopressor # New Murmur noted; not sure whether this is old or new,; Echo result reviewed EJF 54%, mild to moderate TR, moderate aortic regurgitation. # H/o HTN: cont BB # H/o Dm: SS with coverage DVT Px: Heparin Visit type - Emergency Visit Emergency Visit: Yes ED Registration Date: 05/22/17 Care time: The patient presented to the Emergency Department on the above date and was hospitalized for further evaluation of their emergent condition. - New Patient This patient is new to me today: No - Critical Care Critical Care patient: No
--- NOTE | 2017-05-27 17:00 | PN ---
Progress Note (short form) - Note Progress Note: Attending Surgeon POD #1 No c/o; tolerated liquids VSS AF abdomen-soft; port sites c/d/i; CLARISSA serosanguinous; output noted H/H stable; LFT' reviewed IMP: doing well PLAN: Advance diet; OOB; d/c/IVABS anticipate drain removal and d/c tomorrow. Raji Davis MD FACS
[2017-05-27] MEDS: amLODIPine BESYLATE 5 MG TABLET (FP) PO SCH (17:23)
[2017-05-27] MEDS ORDERED: INSULIN (NOVOLOG) ASPART 100 UNITS/ML 10ML VIAL ONE (20:41)
[2017-05-28] MEDS: HEPARIN NA (PORCINE) 5,000 UNITS/ML 1ML VIAL SQ SCH (06:06)
[2017-05-28] MEDS: INSULIN SLIDING SCALE (NOVOLOG) 1 VIAL SQ SCH ×2 (06:11→12:58)
[2017-05-28] MEDS: LEVOTHYROXINE NA 75 MCG TABLET (FP) PO SCH (06:18)
[2017-05-28 07:15] LABS: ALBUMIN 2.8 g/dl (3.4-5.0); ANION GAP 9 (8-16); BILIRUBIN,TOTAL 0.6 mg/dL (0.2-1.0); CALCIUM 8.1 mg/dL (8.5-10.1); CO2 31 mmol/L (21-32); CREATININE 0.6 mg/dL (0.7-1.3); GLUCOSE,RANDOM 136 mg/dL (74-106); MAGNESIUM 1.5 mg/dL (1.8-2.4); PHOSPHOROUS 2.7 mg/dL (2.5-4.9); SGOT/AST 44 U/L (15-37); SGPT/ALT 68 U/L (12-78); TOT PROT 6.1 g/dl (6.4-8.2)
[2017-05-28 07:16] LABS: ALK PHOS 323 U/L (45-117)
[2017-05-28 07:21] LABS: BASOPHIL 0.7 % (0-2.0); EOSINOPHIL 1.3 % (0-4.5); MCH 28.4 pg (25.7-33.7); MCHC 33.2 g/dl (32.0-35.9); MEAN CELL VOLUME 85.6 fl (80-96); MEAN PLT VOLUME 8.1 fl (7.5-11.1); PLATELET COUNT 300 K/MM3 (134-434); WHITE BLOOD COUNT 7.3 K/mm3 (4.0-10.0)
--- NOTE | 2017-05-28 08:22 | PN ---
Progress Note, Physician Chief Complaint: ID Post op day 2 Afebrile off antibiotics Offers no complaints - Current Medication List Current Medications: Active Medications Amlodipine Besylate (Norvasc -) 5 mg PO DAILY [facility] Last Admin: 05/27/17 17:23 Dose: 5 mg Heparin Sodium (Porcine) (Heparin -) 5,000 unit SQ TID [facility] Last Admin: 05/28/17 06:06 Dose: 5,000 unit Insulin Aspart (Novolog Vial Sliding Scale -) 1 vial SQ Q6HPO [facility] PRN Reason: Protocol Last Admin: 05/28/17 06:11 Dose: Not Given Levothyroxine Sodium (Synthroid -) 75 mcg PO DAILY@0700 [facility] Last Admin: 05/28/17 06:18 Dose: 75 mcg Metoprolol Tartrate (Lopressor -) 100 mg PO DAILY [facility] Last Admin: 05/27/17 09:20 Dose: 100 mg Oxycodone HCl (Roxicodone -) 5 mg PO Q6H PRN PRN Reason: PAIN LEVEL 1-5 Last Admin: 05/27/17 17:22 Dose: 5 mg Oxycodone HCl (Roxicodone -) 10 mg PO Q6H PRN PRN Reason: PAIN LEVEL 6-10 Last Admin: 05/26/17 16:41 Dose: 10 mg Tamsulosin HCl (Flomax -) 0.4 mg PO DAILY@0830 [facility] Last Admin: 05/27/17 09:20 Dose: 0.4 mg - Objective Vital Signs: Vital Signs Temperature 98.0 F 05/28/17 06:00 Pulse Rate 85 05/28/17 06:00 Respiratory Rate 18 05/28/17 06:00 Blood Pressure 155/75 05/28/17 06:00 O2 Sat by Pulse Oximetry (%) 95 05/27/17 21:00 Constitutional: Yes: Well Nourished, No Distress Neck: Yes: WNL, Supple Cardiovascular: Yes: Regular Rate and Rhythm, S1, S2 Respiratory: Yes: WNL, Regular, CTA Bilaterally Gastrointestinal: Yes: WNL, Normal Bowel Sounds, Soft, Other (RUQ drain). No: Tenderness Edema: No Labs: CBC, BMP 05/28/17 06:00 05/28/17 06:00 INR, PTT INR 1.22 (0.82-1.09) H 05/25/17 12:10 Assessment/Plan Microbiology 05/23/17 08:00 Urine - Urine Clean Catch Urine Culture - Final NO GROWTH OBTAINED 05/22/17 18:30 Blood - Peripheral Venous Blood Culture - Final NO GROWTH AFTER 5 DAYS INCUBATION 05/22/17 18:30 Blood - Peripheral Venous Blood Culture - Final NO GROWTH AFTER 5 DAYS INCUBATION Laboratory Tests 05/28/17 05/28/17 06:00 06:00 WBC 7.3 Hgb 11.9 Plt Count 300 AST 44 H D ALT 68 D Alkaline Phosphatase 323 H Assessment Clinically doing well post op day 2 Lap karina Plan Remove tube RUQ Discharge planning per Dr Ryan Wayne MD
[2017-05-28] MEDS: amLODIPine BESYLATE 5 MG TABLET (FP) PO SCH (10:09)
[2017-05-28] MEDS: METOPROLOL TARTRATE 50 MG TABLET (FP) PO SCH (10:09)
[2017-05-28] MEDS: TAMSULOSIN HCL 0.4 MG CAP.ER.24H (FP) PO SCH (10:09)
--- NOTE | 2017-05-28 11:47 | PN ---
Progress Note (short form) - Note Progress Note: Attending Surgeon POD #2 No c/o; tolerated regular diabetic diet VSS AF abdomen-benign; CLARISSA minimal ss output h/h/ stable; LFT's improving IMP: stable post op PLAN : Drain removed; d/c to OPD f/u 7- 10 days; LFT's will need to be repeated in the outpatient setting. Raji Davis MD FACS
[2017-05-28 12:18] VITALS: TEMP 98.2
[2017-05-28 12:58] VITALS: BP 152/83; PULSE 80
--- NOTE | 2017-05-28 14:46 | DS ---
Physical Examination Vital Signs: Vital Signs Temperature 98.2 F 05/28/17 10:00 Pulse Rate 80 05/28/17 12:58 Respiratory Rate 18 05/28/17 12:58 Blood Pressure 152/83 05/28/17 12:58 O2 Sat by Pulse Oximetry (%) 95 05/28/17 09:00 Findings/Remarks: 81 yrs old man H/O HTN, T2DM, Dyslipedemia, Hypothyroidism, present to ED with Rt UQ pain, fever, nausea and vomiting, diagnosed acute cholycystitis underwent open Cholycystectomy, improved ableto tolerate Po now off abx. Eyes: Yes: Conjunctiva Clear, EOM Intact HENT: Yes: Atraumatic, Normocephalic Neck: Yes: WNL, Supple, Trachea Midline Cardiovascular: Yes: WNL, Regular Rate and Rhythm Respiratory: Yes: WNL, Regular, CTA Bilaterally Gastrointestinal: Yes: WNL, Normal Bowel Sounds, Soft, Other (Healing scar of Cholycystectomy.) Musculoskeletal: Yes: WNL. No: Back Pain, Joint Stiffness Extremities: Yes: WNL. No: Calf Tenderness Edema: No Peripheral Pulses WNL: Yes Wound/Incision: Yes: Well Approximated Neurological: Yes: WNL, Alert, Oriented ...Motor Strength: LUE, LLE, RUE, RLE Labs: CBC, BMP 05/28/17 06:00 05/28/17 06:00 Discharge Summary Reason For Visit: CHOLECYSTITIS Condition: Improved - Instructions Diet, Activity, Other Instructions: As advised Resume Simvastatin after discussing with PMD once LFts are normal F/U with PMD to RPT LFYS and BMP in a wk Referrals: Raji Davis MD [Staff Physician] - 1 Week Hieu Quintana MD [Primary Care Provider] - 1 Week Disposition: HOME - Home Medications Comprehensive Discharge Medication List: Ambulatory Orders Insulin (Levemir) [Levemir Flexpen -] 30 units SQ HS 01/27/13 Metoprolol Tartrate [Lopressor -] 100 mg PO DAILY 01/27/13 Levothyroxine [Synthroid -] 75 mcg PO DAILY@0700 #0 tablet 02/04/13 Glipizide/Metformin HCl [Glipizide-Metformin 5-500 mg] 1 each PO BID 05/23/17 Tamsulosin HCl [Flomax] 0.4 mg PO DAILY 05/23/17 Amlodipine Besylate [Norvasc -] 5 mg PO DAILY #30 tablet 05/28/17 Oxycodone HCl [Roxicodone -] 5 mg PO Q6H PRN #20 tablet MDD 4 05/28/17
--- NOTE | 2017-05-29 11:56 | EKG ---
Test Reason : Blood Pressure : / mmHG Vent. Rate : 073 BPM Atrial Rate : 073 BPM P-R Int : 174 ms QRS Dur : 128 ms QT Int : 396 ms P-R-T Axes : 015 -47 -07 degrees QTc Int : 436 ms NORMAL SINUS RHYTHM LEFT AXIS DEVIATION LEFT VENTRICULAR HYPERTROPHY WITH QRS WIDENING CANNOT RULE OUT SEPTAL INFARCT (CITED ON OR BEFORE 22-MAY-2017) ABNORMAL ECG WHEN COMPARED WITH ECG OF 22-MAY-2017 17:16, COMPARED TO EKG NO SIGNIFICANT CHANGE IS FOUND Confirmed by ELY MEEKS MD ([id number]) on 05/29/2017 11:56:44 AM Referred By: Confirmed By:ELY MEEKS MD
--- NOTE | 2017-05-30 10:00 | OP ---
DATE OF OPERATION: 05/26/2017 PREOPERATIVE DIAGNOSIS: Cholelithiasis and choledocholithiasis. POSTOPERATIVE DIAGNOSIS: Cholelithiasis and choledocholithiasis. PROCEDURE: Laparoscopic cholecystectomy. SURGEON: Raji Davis MD PUBLIC HEALTH NUTRITIONIST: Hannah Elena PA-C ANESTHESIA: General. OPERATIVE FINDINGS: There was cholelithiasis and adhesions to the gallbladder of omentum. The rest of the findings were unremarkable. DESCRIPTION OF PROCEDURE: The patient was placed on the operating table in supine position, and after the induction of general anesthesia, the patients abdomen was prepped with ChloraPrep and draped in sterile fashion. A time-out was taken, and pneumoperitoneum was established above the umbilicus using a Veress needle to an intraabdominal pressure of 15 mmHg. A 5-mm umbilical port was placed, and laparoscopy carried out, and the previously noted findings were observed. Additional 5-mm lateral ports and a subxiphoid 12-mm port were placed, and then the gallbladder was placed on cephalad and lateral traction. Omentum adherent to the gallbladder was taken down using a combination of blunt dissection and electrocautery. The gallbladder neck was then placed on lateral traction, and dissection begun in the triangle of Calot where the peritoneum was opened anteriorly using electrocautery. The neck of the gallbladder was identified, and then, the cystic duct coursing from the neck towards the common duct. The cystic duct was dissected bluntly for length proximally and distally, and the cystic artery was similarly identified and dissected. The critical view of safety was taken, and then the duct and artery were serially divided using the EndoShears after placement of two 10-mm clips distally and two 10-mm clips proximally. Next, the gallbladder was removed from the liver bed in a retrograde fashion using electrocautery. It was placed in a specimen retrieval bag and brought out through the subxiphoid port, and pneumoperitoneum reestablished. Copious irrigation was carried out until the return was clear, and then, a 10-mm Toni-Gardner drain was placed in the right hepatorenal fossa and brought out through one of the 5-mm port sites and secured to the skin using 2-0 silk suture. Pneumoperitoneum was again reestablished, hemostasis verified, and then, all ports removed under laparoscopic vision without evidence of bleeding from the port sites. The port sites were then infiltrated with 1% Xylocaine and 0.5% Marcaine in equal concentration, and the skin edges closed using 4-0 Monocryl in the subcuticular fashion. The drain was connected to bulb self- suction. Steri-Strips were placed on the port sites followed by dry sterile dressings, and the procedure terminated at this point, and the patient aroused from general anesthesia and transferred to the post-anesthesia care unit in stable condition, awake and alert. ESTIMATED BLOOD LOSS: Approximately 50 mL. REPLACEMENTS: Crystalloid. DRAINS: One 10-mm Toni-Gardner. SPECIMENS: Gallbladder and contents to Pathology. I, Raji Davis, was physically present in the operating room from the time the patient was placed on the operating table until he was transferred to the post-anesthesia care unit in my accompaniment. MD RAYMOND Gomez/[id number]
--- NOTE | 2017-05-30 13:43 | PATH ---
Surgical Pathology Report Patient Name: FEMI ESTRADA Med. Rec. #: [id number] /Age/Gender: 1935 (Age: 81) / M Account: [id number] Location: [facility] MED/SURG Taken: 05/26/2017 Received: 05/29/2017 Reported: 05/30/2017 Physicians: Toribio Winter M.D. Specimen(s) Received GALLBLADDER Clinical History Cholecystitis Final Diagnosis GALLBLADDER, CHOLECYSTECTOMY: CHRONIC CHOLECYSTITIS. Electronically Signed Juan David Pace M.D. Gross Description Received in formalin, labeled "gallbladder," is a 8.2 x 3.5 x 2.5 cm. gallbladder with a 0.2 cm. in length portion of cystic duct attached. The outer surface is polk roy and varies from smooth to shaggy. The lumen contains green, tenacious bile. No choleliths are identified within the lumen or within the container. The mucosa is green and focally eroded. The wall of the gallbladder averages 0.3 cm. in thickness. Monitoring Analyst sections are submitted in one cassette. 05/29/2017 [place]05/29/2017
== END 2017-05-28 13:45 | disposition home or self-care (01) | DRG 418 ==
LOC: JER 16:46 → JERBED 23:55 → UNDOADMIN 05-23 00:48 → J8W 05-23 02:18 → JERBED 05-23 02:18
PROVIDERS: ADMIT Internal Medicine; ATTEND Internal Medicine
PROC: 0FC98ZZ Extirpation of Matter from Common Bile Duct, Via Natural or Artificial Opening Endoscopic (ICD-10-PCS; 2017-05-26)
PROC: 0FT44ZZ Resection of Gallbladder, Percutaneous Endoscopic Approach (ICD-10-PCS; principal; 2017-05-26 12:00)
DX: K80.01 Calculus of gallbladder with acute cholecystitis with obstruction (principal); K83.0 Cholangitis; E83.42 Hypomagnesemia; N40.0 Benign prostatic hyperplasia without lower urinary tract symptoms; I10 Essential (primary) hypertension; E78.5 Hyperlipidemia, unspecified; E11.9 Type 2 diabetes mellitus without complications; E03.9 Hypothyroidism, unspecified; R74.0 Nonspecific elevation of levels of transaminase and lactic acid dehydrogenase [LDH]; Z79.4 Long term (current) use of insulin; N32.81 Overactive bladder; E87.8 Other disorders of electrolyte and fluid balance, not elsewhere classified; R01.1 Cardiac murmur, unspecified; I35.0 Nonrheumatic aortic (valve) stenosis; I34.0 Nonrheumatic mitral (valve) insufficiency; I35.1 Nonrheumatic aortic (valve) insufficiency
CPT/HCPCS: 36415; 71010-TC; 74176-TC; 74181-TC; 74330-TC; 76700-TC; 80048; 80053; 80076; 81003; 81015; 82150; 82248; 83605; 83690; 83735; 84100; 84484; 85025; 85610; 86850; 86900; 86901; 87040; 87086; 88304-TC; 93005; 93010; 93306-TC; 94760; 99281-25; J1644

== ENCOUNTER 2018-10-08 18:40 | Emergency (ER) | payer OTHER ==
--- NOTE | 2018-10-08 18:59 | PDOC ---
Rapid Medical Evaluation Chief Complaint: Blood Pressure Problem Medical Evaluation: Allergies Allergy/AdvReac Type Severity Reaction Status Date / Time No Known Allergies Allergy Verified 05/22/17 17:47 I have performed a brief in-person evaluation of this patient. The patient presents with a chief complaint of: Hx of HTN, DM; C/O high blood pressure and lightheadedness from last night; denies CP, vomiting; is on Metoprolol for HTN (last took his med this AM) Pertinent physical exam findings: In NAD I have ordered the following: Labs, EKG The patient will proceed to the ED for further evaluation. 10/08/18 18:56 Discharge Disposition - Discharge Dispostion Condition at time of disposition: Stable - Referrals - Patient Instructions - Post Discharge Activity
[2018-10-08 19:01] VITALS: TEMP 97.8; BMI 32.8
[2018-10-08 20:03] LABS: BASO % 0.5 % (0-2.0); EOS % 1.7 % (0-4.5); HEMATOCRIT 40.7 % (35.4-49); HEMOGLOBIN 13.8 GM/dL (11.7-16.9); LYMPH % 10.6 % (8-40); MCH 28.8 pg (25.7-33.7); MCHC 33.8 g/dl (32.0-35.9); MEAN CELL VOLUME 85.1 fl (80-96); MEAN PLT VOLUME 8.2 fl (7.5-11.1); MONO % 5.7 % (3.8-10.2); NEUT % 81.5 % (42.8-82.8); PLATELET COUNT 248 K/MM3 (134-434); RBC 4.78 M/mm3 (4.00-5.60); RDW 14.5 % (11.9-15.9); WHITE BLOOD COUNT 6.5 K/mm3 (4.0-10.0)
--- NOTE | 2018-10-08 20:31 | PDOC ---
History of Present Illness - General Chief Complaint: Blood Pressure Problem Stated Complaint: HYPERTENSION Time Seen by Provider: 10/08/18 18:56 History Source: Patient, Family Exam Limitations: No Limitations - History of Present Illness Initial Comments: HPI: 82 y/o male presenting to [facility] ER complaining of episodic dizziness. No active complaint at time of interview. Experienced two episodes today and two prior single episodes over the past several days. Pt states the symptoms are sudden onset and last approx. 1 hour. Improves after napping. Symptoms include dysequilibrium and nausea w/o vomiting. Denies room spinning, tinnitus, change in vision, change in hearing, or recent illness. Denies h/o of previous. No trauma or syncope. Reports good compliance with home medications. Home BGL average 150s. PCP: Dr. Toney Past History - Past Medical History Allergies/Adverse Reactions: Allergies Allergy/AdvReac Type Severity Reaction Status Date / Time No Known Allergies Allergy Verified 05/22/17 17:47 Home Medications: Ambulatory Orders Insulin (Levemir) [Levemir Flexpen -] 30 units SQ HS 01/27/13 Metoprolol Tartrate [Lopressor -] 100 mg PO DAILY 01/27/13 Levothyroxine [Synthroid -] 75 mcg PO DAILY@0700 #0 tablet 02/04/13 Glipizide/Metformin HCl [Glipizide-Metformin 5-500 mg] 1 each PO BID 05/23/17 Tamsulosin HCl [Flomax] 0.4 mg PO DAILY 05/23/17 Amlodipine Besylate [Norvasc -] 5 mg PO DAILY #30 tablet 05/28/17 oxyCODONE HCL [Roxicodone -] 5 mg PO Q6H PRN #20 tablet MDD 4 05/28/17 COPD: No Diabetes: Yes HTN: Yes Thyroid Disease: Yes - Immunization History Immunization Up to Date: No - Suicide/Smoking/Psychosocial Hx Smoking Status: No Smoking History: Never smoked Have you smoked in the past 12 months: No Number of Cigarettes Smoked Daily: 0 Information on smoking cessation initiated: No Hx Alcohol Use: No Drug/Substance Use Hx: No Substance Use Type: None Hx Substance Use Treatment: No Review of Systems - Review of Systems Able to Perform ROS?: Yes Comments:: In addition to that documented in the HPI above, the additional ROS was obtained : Constitutional: Denies fevers or chills Eyes: Denies vision changes ENMT: Denies sore throat CV: Denies chest pain Resp: Denies SOB GI: Denies vomiting or diarrhea : Denies painful urination. Endorses chronic urinary frequency. MSK: Denies recent trauma Skin: Denies new rashes Neuro: Denies new numbness or tingling or weakness Endocrine: Denies polyuria Heme: Denies bleeding or bruising *Physical Exam - Vital Signs Last Vital Signs Temp Pulse Resp BP Pulse Ox 97.8 F 68 16 188/82 H 97 10/08/18 18:55 10/08/18 18:55 10/08/18 18:55 10/08/18 18:55 10/08/18 18:55 - Physical Exam Comments: Constitutional: Nontoxic elderly male in no acute distress or obvious discomfort. Found standing next to hospital bed. Alert and oriented x4. Answered all questions appropriately and completely. Speech was non-labored, non -pressured. Head: Normocephalic. No obvious external signs of trauma. Eyes: Pupils 3mm and PERRL bilaterally. EOMI. Sclerae white. Conjunctiva moist and not injected. EARS: External auditory canals and tympanic membranes clear. Hearing grossly intact. NOSE: No nasal discharge. THROAT: Oral cavity and pharynx normal. No inflammation, swelling, exudate, or lesions. Uvula midline. Neck: Supple, trachea is midline. Cardiovascular: Regular rate and regular rhythm. Holosystolic murmur loudest at right sternal border but prominent in all five areas. No rubs, clicks, or gallops. Peripheral pulses: Radial pulses full. Respiratory: Breathing unlabored. Equal chest rise and fall. Clear to auscultation bilaterally. No stridor, no wheezing, no rhonchi. Gastrointestinal: abdomen is soft, non-tender, non-distended. Neuro: Alert and oriented. Moving all four extremities spontaneously. No focal deficits. Cranial nerves intact. Sensation to all four extremities intact. Upper and lower extremities: proximal and distal strength 5/5. Tower Truck Driver strength 5/ 5 - equal and symmetric. Plantar flexion and dorsiflexion 5/5. No nuchal rigidity. Gait normal. Able to walk without assistance. Resting tremor in right hand, which improves with intention. No vertical or horizontal nystagmus. Skin: Warm, dry, and intact. No bruising, rashes, or other lesions. Psych: Affect: appropriate. Mood: normal. Moderate Sedation - Procedure Monitoring Vital Signs: Procedure Monitoring Vital Signs Temperature 97.8 F 10/08/18 18:55 Pulse Rate 68 10/08/18 18:55 Respiratory Rate 16 10/08/18 18:55 Blood Pressure 188/82 H 10/08/18 18:55 O2 Sat by Pulse Oximetry (%) 97 10/08/18 18:55 ED Treatment Course - LABORATORY CBC & Chemistry Diagram: 10/08/18 19:50 10/08/18 19:50 - ADDITIONAL ORDERS Additional order review: 10/08/18 19:50 RBC 4.78 MCV 85.1 MCHC 33.8 RDW 14.5 MPV 8.2 Neutrophils % 81.5 Lymphocytes % 10.6 D Monocytes % 5.7 Eosinophils % 1.7 Basophils % 0.5 Medical Decision Making - Medical Decision Making *Reviewed vital signs, nursing notes, and prior visit documentation (if available). 82 y/o male complaining of episodic dizziness with a sense of disequilibrium and difficulty walking. Symptoms resolved at time of interview and did not return during visit. No history of prior. Physical exam unremarkable for neurologic deficits, aside from resting tremor in right hand reported to be a long standing finding and unchanged today. Concern for possible CVA vs TIA given age and PMH of HTN and HCL. Ordered meclizine for possible symptom relief. Of note, systolic murmur likely not a new finding. Last echo dated 05/24/2017 showed possible aortic stenosis, moderate aortic regurg, impaired LV relaxation , moderate mitral annular calcification, and mild to moderate tricuspid regurg. Pt found to be persistently hypertensive throughout the visit. This appears to be his baseline per history values in [place]. Given trend and lack of active symptoms, low suspicion for HTN urgency/emergency. EKG showed signs of LAD, which is consistent with echo findings. EKG is unchanged when compared to prior dated 23 May 2017. Low suspicion for ACS. Head CT unremarkable for acute intracranial process. TSH is within normal limits. Low suspicion for hyperthyroidism or levothyroxine dose . Attending discussed admission with pt, who declined. Would like to follow up with PCP at previously scheduled appointment on Monday. Return precautions provided. *DC/Admit/Observation/Transfer Diagnosis at time of Disposition: Dizziness - Discharge Dispostion Disposition: HOME Condition at time of disposition: Stable Decision to Admit order: No - Referrals Referrals: Hieu Quintana MD [Primary Care Provider] - - Patient Instructions Printed Discharge Instructions: DI for High Blood Pressure, DI for Dizziness- Nonvertigo Additional Instructions: You were seen today for episodes of dizziness. Your blood work, EKG, and head x- rays were normal. Your symptoms may still be caused by a problem with your ear or a problem inside of your head that we were not able to see on our xrays. Your family should monitor you for the next several days for changes. Your blood pressure was elevated today. This is probably a chronic problem for you. You should talk to your doctor about this problem. Follow up with your doctor on Monday at your previously scheduled appointment. I have attached copies of your results from todays visit to this packet. Take it with you so your doctor can review them. Go to the nearest emergency department if your condition worsens or you feel like you need additional emergency evaluation. Print Language: VIETNAMESE - Post Discharge Activity
[2018-10-08 20:42] LABS: ANION GAP 7 MMOL/L (8-16); BLOOD UREA NITROGEN 18 mg/dL (7-18); CALCIUM 9.1 mg/dL (8.5-10.1); CHLORIDE 97 mmol/L (98-107); CO2 30 mmol/L (21-32); CREATININE 0.8 mg/dL (0.55-1.3); GLUCOSE,RANDOM 284 mg/dL (74-106); POTASSIUM 4.3 mmol/L (3.5-5.1); SODIUM 134 mmol/L (136-145)
[2018-10-08] MEDS ORDERED: MECLIZINE HCL 25 MG TABLET (FP) PO ONE (21:02)
[2018-10-08] MEDS ORDERED: MECLIZINE HCL 25 MG TABLET (FP) ONE (21:04)
--- NOTE | 2018-10-08 23:17 | PDOC ---
Attending Attestation - Physicial Exam PE: 10/08/18 23:50 GENERAL: Well-appearing, well-nourished. No apparent distress. HEENT: Normocephalic, atraumatic. PERRL, EOM intact. +CARDIOVASCULAR: Systolic murmur. PULMONARY: Clear to auscultation bilaterally. ABDOMEN: Soft, non-distended, non-tender. EXTREMITIES: Normal ROM in all four extremities. No gross deformities. SKIN: Warm, dry. No rash NEUROLOGICAL: No focal neurological deficits. <Wilson Metzger - Last Filed: 10/08/18 23:50> - Resident Resident Name: Haseeb Chase - ED Attending Attestation I have performed the following: I have examined & evaluated the patient, The case was reviewed & discussed with the resident, I agree w/resident's findings & plan, Exceptions are as noted - HPI HPI: 10/08/18 23:16 82 -year-old male with a history of hypertension, presented with dizziness. CAT scan of the brain shows moderate atrophy No gross evidence of focal intracranial lesion or hemorrhage is seen. Left mastoid air cells underdeveloped opacified - Medical Decision Making 10/08/18 23:52 pt had dizziness several times over past day ct scan head no bleed,no infarct -he has a history of labile blood pressure and has an appt to see Dr De La Rosa this Monday -he denies any chest pain,shortness of breath,headache,motor weakness at this time 10/09/18 16:22 imp essential hypertension/dizziness pt to see Dr De La Rosa this week <Adenike Arnett - Last Filed: 10/09/18 16:23> Attestations - Attestations 10/08/18 23:51 Documentation prepared by Wilson Metzger, acting as medical grade shoemaker for Adenike Arnett MD. <Wilson Metzger - Last Filed: 10/08/18 23:50>
[2018-10-08 23:57] VITALS: BP 195/82; PULSE 72
--- NOTE | 2018-10-09 16:30 | EKG ---
Test Reason : Blood Pressure : / mmHG Vent. Rate : 072 BPM Atrial Rate : 072 BPM P-R Int : 178 ms QRS Dur : 118 ms QT Int : 398 ms P-R-T Axes : 022 -54 021 degrees QTc Int : 435 ms NORMAL SINUS RHYTHM LEFT ANTERIOR FASCICULAR BLOCK LEFT VENTRICULAR HYPERTROPHY WITH QRS WIDENING CANNOT RULE OUT SEPTAL INFARCT (CITED ON OR BEFORE 22-MAY-2017) ABNORMAL ECG WHEN COMPARED WITH ECG OF 23-MAY-2017 05:49, QUESTIONABLE CHANGE IN INITIAL FORCES OF SEPTAL LEADS Confirmed by Abhi León ([id number]) on 10/09/2018 4:30:07 PM Referred By: Confirmed By:Abhi León
== END 2018-10-09 00:08 | disposition home or self-care (01) ==
LOC: JER 18:40
DX: I10 Essential (primary) hypertension (principal); R42 Dizziness and giddiness; E11.9 Type 2 diabetes mellitus without complications; Z79.4 Long term (current) use of insulin; Z79.84 Long term (current) use of oral hypoglycemic drugs; E07.9 Disorder of thyroid, unspecified
CPT/HCPCS: 36415; 70450-TC; 80048; 84443; 84484; 85025; 93005; 93010; 99284-25

== ENCOUNTER 2022-02-02 09:27 | Inpatient (IN) | payer OTHER ==
[2022-02-02 11:16] LABS: BASO % 0.4 % (0-2.0); HEMATOCRIT 39.1 % (35.4-49); HEMOGLOBIN 12.9 GM/dL (11.7-16.9); LYMPH % 11.7 % (8-40); MCH 27.2 pg (25.7-33.7); MCHC 32.9 g/dl (32.0-35.9); MEAN CELL VOLUME 82.7 fl (80-96); MEAN PLT VOLUME 7.8 fl (7.5-11.1); MONO % 16.8 % (3.8-10.2); NEUT % 71.1 % (42.8-82.8); PLATELET COUNT 213 10^3/uL (134-434); RBC 4.72 M/mm3 (4.00-5.60); RDW 14.3 % (11.9-15.9); WHITE BLOOD COUNT 3.9 K/mm3 (4.0-10.0)
[2022-02-02 11:27] LABS: CALCIUM 9.1 mg/dL (8.5-10.1)
[2022-02-02 11:28] LABS: ALBUMIN 3.4 g/dl (3.4-5.0); BLOOD UREA NITROGEN 17.2 mg/dL (7-18)
[2022-02-02 11:31] LABS: CREATININE 0.8 mg/dL (0.55-1.3)
[2022-02-02 11:32] LABS: BILIRUBIN,TOTAL 0.4 mg/dL (0.2-1); TOT PROT 7.7 g/dl (6.4-8.2)
[2022-02-02] MEDS ORDERED: SODIUM CHLORIDE 0.9% 1000 ML INFUS.BAG IV ONE ×2 (12:49→13:08)
[2022-02-02] MEDS ORDERED: ACETAMINOPHEN 1000 MG/100 ML BAG IVPB ONE (13:08)
[2022-02-02 13:12] LABS: EPI CELLS >36 /uL (0-25.1); HYALINE CASTS 1 /uL (0-3.1); URINE APPEARANCE TURBID; URINE BACTERIA 35 /uL (0-1359); URINE BILIRUBIN NEGATIVE (NEGATIVE); URINE COLOR YELLOW; URINE GLUCOSE (UA) 3+ (NEGATIVE); URINE KETONE TRACE (NEGATIVE); URINE LEUK ESTERASE 3+ (NEGATIVE); URINE NITRITE NEGATIVE (NEGATIVE); URINE PROTEIN 2+ (NEGATIVE); URINE RBC 315 /uL (0-23.9); URINE UROBILINOGEN 0.2 mg/dL (0.2-1.0); URINE WBC 3432 /uL (0-25.8)
[2022-02-02] MEDS ORDERED: ACETAMINOPHEN INJECTION 100 ML IVPB ONE (13:15)
[2022-02-02 13:31] LABS: YEAST MANY (NEGATIVE)
[2022-02-02] MEDS ORDERED: CEFTRIAXONE 1,000 MG in DEXTROSE 5%-WATER - 50 ML IVPB ONE (14:11)
[2022-02-02] MEDS ORDERED: CEFTRIAXONE 1 GM/50 ML BAG ONE (14:23)
[2022-02-03 01:13] VITALS: BMI 24.3
[2022-02-03] MEDS ORDERED: DEXTROSE 50%-WATER - 25 GM/50 ML VIAL IVPUSH ONE (06:47)
[2022-02-03] MEDS ORDERED: DEXTROSE 50%-WATER 25 GM/50 ML DISP.SYRIN ONE (06:48)
[2022-02-03] MEDS: INSULIN SLIDING SCALE (NOVOLOG) 1 VIAL SQ SCH ×4 (06:49→21:42)
[2022-02-03] MEDS: LEVOTHYROXINE NA 75 MCG TABLET (FP) PO SCH (06:50)
[2022-02-03 07:16] LABS: BASO % 0.3 % (0-2.0); EOS % 0.1 % (0-4.5); HEMATOCRIT 38.7 % (35.4-49); HEMOGLOBIN 12.9 GM/dL (11.7-16.9); LYMPH % 21.1 % (8-40); MCH 27.8 pg (25.7-33.7); MCHC 33.3 g/dl (32.0-35.9); MEAN CELL VOLUME 83.4 fl (80-96); MEAN PLT VOLUME 7.9 fl (7.5-11.1); MONO % 11.1 % (3.8-10.2); NEUT % 67.4 % (42.8-82.8); PLATELET COUNT 196 10^3/uL (134-434); RBC 4.64 M/mm3 (4.00-5.60); RDW 14.5 % (11.9-15.9); WHITE BLOOD COUNT 4.5 K/mm3 (4.0-10.0)
[2022-02-03 07:51] LABS: CHOLESTEROL 99 mg/dL (50-200); HDL CHOLESTEROL 50 mg/dL (40-60)
[2022-02-03 07:53] LABS: LDL CHOLESTEROL (ONLY SJRH) 39 mg/dL (5-100)
[2022-02-03 07:59] LABS: TRIGLYCERIDES 91 mg/dL (0-150)
[2022-02-03 08:37] LABS: ALK PHOS 93 U/L (45-117); ANION GAP 10 MMOL/L (8-16); BILIRUBIN,TOTAL 0.4 mg/dL (0.2-1); CALCIUM 8.5 mg/dL (8.5-10.1); CHLORIDE 105 mmol/L (98-107); CO2 26 mmol/L (21-32); CREATININE 0.6 mg/dL (0.55-1.3); GLUCOSE,RANDOM 40 mg/dL (74-106); MAGNESIUM 2.1 mg/dL (1.8-2.4); SGOT/AST 52 U/L (15-37); SGPT/ALT 36 U/L (13-61); SODIUM 141 mmol/L (136-145)
[2022-02-03] MEDS ORDERED: cefTRIAXone SODIUM 1 GM VIAL ONE (10:19)
[2022-02-03] MEDS ORDERED: DEXTROSE 5%-WATER - 50 ML IVPB ONE (10:19)
[2022-02-03] MEDS: CEFTRIAXONE 1 GM in DEXTROSE 5%-WATER - 50 ML IVPB SCH (10:43)
[2022-02-03] MEDS: HEPARIN NA (PORCINE) 5,000 UNITS/ML 1ML VIAL SQ SCH ×2 (10:43→21:31)
[2022-02-03] MEDS: amLODIPine BESYLATE 5 MG TABLET (FP) PO SCH (10:44)
[2022-02-03] MEDS: METOPROLOL TARTRATE 50 MG TABLET (FP) PO SCH (10:44)
[2022-02-03] MEDS: TAMSULOSIN HCL 0.4 MG CAP PO SCH (10:44)
[2022-02-03] MEDS ORDERED: REMDESIVIR 200 MG in SODIUM CHLORIDE 250 ML IVPB ONE (16:00)
[2022-02-03] MEDS: INSULIN (LEVEMIR) 100 UNITS/ML UNITS SQ SCH (21:42)
[2022-02-04] MEDS: LEVOTHYROXINE NA 75 MCG TABLET (FP) PO SCH (06:25)
[2022-02-04] MEDS: INSULIN SLIDING SCALE (NOVOLOG) 1 VIAL SQ SCH ×4 (06:33→22:18)
[2022-02-04 09:03] LABS: BASO % 0.3 % (0-2.0); HEMOGLOBIN 13.2 GM/dL (11.7-16.9); LYMPH % 33.1 % (8-40); MCH 27.4 pg (25.7-33.7); MEAN CELL VOLUME 82.9 fl (80-96); MEAN PLT VOLUME 8.1 fl (7.5-11.1); MONO % 9.1 % (3.8-10.2); NEUT % 56.5 % (42.8-82.8); PLATELET COUNT 190 10^3/uL (134-434); RBC 4.82 M/mm3 (4.00-5.60); RDW 14.4 % (11.9-15.9); WHITE BLOOD COUNT 4.2 K/mm3 (4.0-10.0)
[2022-02-04 09:14] LABS: ALBUMIN 2.8 g/dl (3.4-5.0); BLOOD UREA NITROGEN 16.3 mg/dL (7-18); CALCIUM 8.3 mg/dL (8.5-10.1)
[2022-02-04 09:17] LABS: CREATININE 0.7 mg/dL (0.55-1.3)
[2022-02-04 09:19] LABS: BILIRUBIN,TOTAL 0.5 mg/dL (0.2-1); TOT PROT 6.8 g/dl (6.4-8.2)
[2022-02-04] MEDS: TAMSULOSIN HCL 0.4 MG CAP PO SCH (10:50)
[2022-02-04] MEDS: amLODIPine BESYLATE 5 MG TABLET (FP) PO SCH (10:50)
[2022-02-04] MEDS: CEFTRIAXONE 1 GM in DEXTROSE 5%-WATER - 50 ML IVPB SCH (10:50)
[2022-02-04] MEDS: METOPROLOL TARTRATE 50 MG TABLET (FP) PO SCH (10:50)
[2022-02-04] MEDS: HEPARIN NA (PORCINE) 5,000 UNITS/ML 1ML VIAL SQ SCH ×2 (10:55→22:17)
[2022-02-04] MEDS ORDERED: cefTRIAXone SODIUM 1 GM VIAL ONE (12:01)
[2022-02-04] MEDS ORDERED: DEXTROSE 5%-WATER - 50 ML IVPB ONE (12:02)
[2022-02-04] MEDS: DEXAMETHASONE SOD PHOSPHATE 10 MG/1 ML VIAL IVPUSH SCH (16:30)
[2022-02-04] MEDS: REMDESIVIR 100 MG in SODIUM CHLORIDE 250 ML IVPB SCH (17:00)
[2022-02-04] MEDS: INSULIN (LEVEMIR) 100 UNITS/ML UNITS SQ SCH (22:17)
[2022-02-05] MEDS: LEVOTHYROXINE NA 75 MCG TABLET (FP) PO SCH (06:51)
[2022-02-05] MEDS: INSULIN SLIDING SCALE (NOVOLOG) 1 VIAL SQ SCH ×4 (06:51→22:13)
[2022-02-05] MEDS: TAMSULOSIN HCL 0.4 MG CAP PO SCH (10:48)
[2022-02-05] MEDS: DEXAMETHASONE SOD PHOSPHATE 10 MG/1 ML VIAL IVPUSH SCH (10:48)
[2022-02-05] MEDS: METOPROLOL TARTRATE 50 MG TABLET (FP) PO SCH (10:48)
[2022-02-05] MEDS: HEPARIN NA (PORCINE) 5,000 UNITS/ML 1ML VIAL SQ SCH ×2 (10:48→22:13)
[2022-02-05] MEDS: amLODIPine BESYLATE 5 MG TABLET (FP) PO SCH (10:48)
[2022-02-05] MEDS: REMDESIVIR 100 MG in SODIUM CHLORIDE 250 ML IVPB SCH (18:29)
[2022-02-05] MEDS: INSULIN (LEVEMIR) 100 UNITS/ML UNITS SQ SCH (22:13)
[2022-02-06] MEDS: LEVOTHYROXINE NA 75 MCG TABLET (FP) PO SCH (06:51)
[2022-02-06] MEDS: INSULIN SLIDING SCALE (NOVOLOG) 1 VIAL SQ SCH ×4 (06:51→21:16)
[2022-02-06] MEDS: METOPROLOL TARTRATE 50 MG TABLET (FP) PO SCH (10:10)
[2022-02-06] MEDS: TAMSULOSIN HCL 0.4 MG CAP PO SCH (10:10)
[2022-02-06] MEDS: amLODIPine BESYLATE 5 MG TABLET (FP) PO SCH (10:10)
[2022-02-06] MEDS: HEPARIN NA (PORCINE) 5,000 UNITS/ML 1ML VIAL SQ SCH ×2 (10:11→21:16)
[2022-02-06] MEDS: DEXAMETHASONE SOD PHOSPHATE 10 MG/1 ML VIAL IVPUSH SCH (10:11)
[2022-02-06] MEDS: REMDESIVIR 100 MG in SODIUM CHLORIDE 250 ML IVPB SCH (16:58)
[2022-02-06] MEDS: INSULIN (LEVEMIR) 100 UNITS/ML UNITS SQ SCH (21:16)
[2022-02-07] MEDS: INSULIN SLIDING SCALE (NOVOLOG) 1 VIAL SQ SCH ×3 (06:24→16:52)
[2022-02-07] MEDS: LEVOTHYROXINE NA 75 MCG TABLET (FP) PO SCH (06:24)
[2022-02-07] MEDS: amLODIPine BESYLATE 5 MG TABLET (FP) PO SCH (09:16)
[2022-02-07] MEDS: TAMSULOSIN HCL 0.4 MG CAP PO SCH (09:16)
[2022-02-07] MEDS: DEXAMETHASONE SOD PHOSPHATE 10 MG/1 ML VIAL IVPUSH SCH (09:16)
[2022-02-07] MEDS: METOPROLOL TARTRATE 50 MG TABLET (FP) PO SCH (09:17)
[2022-02-07] MEDS: HEPARIN NA (PORCINE) 5,000 UNITS/ML 1ML VIAL SQ SCH (09:17)
[2022-02-07 15:25] VITALS: BP 153/70; PULSE 64; TEMP 98.3
[2022-02-07] MEDS: REMDESIVIR 100 MG in SODIUM CHLORIDE 250 ML IVPB SCH (15:59)
== END 2022-02-07 18:24 | disposition home or self-care (01) | DRG 178 ==
LOC: JER 09:27 → JERBED 14:19 → J4S 21:27
PROVIDERS: ADMIT Family Medicine; ATTEND Family Medicine
PROC: XW033E5 Introduction of Remdesivir Anti-infective into Peripheral Vein, Percutaneous Approach, New Technology Group 5 (ICD-10-PCS; principal; 2022-02-02)
DX: U07.1 COVID-19 (principal); N39.0 Urinary tract infection, site not specified; M62.82 Rhabdomyolysis; E11.9 Type 2 diabetes mellitus without complications; E03.9 Hypothyroidism, unspecified; I10 Essential (primary) hypertension; E78.5 Hyperlipidemia, unspecified
CPT/HCPCS: 36415; 70450-TC; 71045-TC-FY; 72125-TC; 76775-TC; 80053; 80061; 81003; 82550; 82553; 82728; 82962; 83605; 83735; 84443; 84484; 85025; 85379; 86140; 87040; 87086; 93005; 93010; 99285-25; C9399; C9803-CS; J1100; J1644; U0003; U0005